=== PATIENT | female | born 1985 | race Caucasian/White ===

== ENCOUNTER 2022-01-30 20:20 | Emergency (ER) | payer BC, SELFPAY | END 2022-01-30 21:05 | disposition left against medical advice (07) | DX: Z53.21 Procedure and treatment not carried out due to patient leaving prior to being seen by health care provider (principal) | CPT/HCPCS: 99281 ==

== ENCOUNTER 2023-02-14 03:28 | Emergency (ER) | payer BC, SELFPAY ==
[2023-02-14 03:31] VITALS: BP 150/94; PULSE 70; RESP 18; TEMP 36.1; O2SAT 99; BMI 21.8
[2023-02-14 04:02] VITALS: BP 139/71; PULSE 68; RESP 18; O2SAT 98
--- NOTE | 2023-02-14 04:04 | ED.GENADULT ---
HPI - General Adult General Chief complaint: Arrhythmia/Palpitations Stated complaint: racing heartrate Time Seen by Provider: 02/14/23 03:40 Source: patient History of Present Illness HPI narrative: 37-year-old female presents to the emergency department for evaluation of feeling of racing heart, is currently present at the time of evaluation. This happens frequently, she reports a couple of times in the last week but typically a couple of times per month. She is on multiple medications including Suboxone, Wellbutrin, Adderall, Latuda and amitriptyline. Reports that she has recently transition from Concerta to Adderall and feels like her symptoms are happening more often. From her description, it sounds as though she has been evaluated in the emergency department for this before. She has been told to monitor her heart rate on her fitness watch. She has not noticed any true high heart rate. There has been no syncope, no chest pain, no dizziness or other related type symptoms. No neurological changes. She has had multiple labs performed within the last few months, reviewed from September. She has also had a thyroid level performed within the last few years, also reviewed. All of these were normal. She sees her monthly, it sounds as though she has brought up her symptoms and there were no additional concerns. She is scheduled to work in 8 hours and requests a work note. She states that other than the mental health issues, she has no long-term medical problems. Her home medications are reviewed and listed as accurate with the exception of amitriptyline and Adderall which were not included in her medicine list. ROS is otherwise negative times 12 systems except for the palpitations as described above. Related Data Home Medications Medication Instructions Recorded Confirmed buprenorphine 8 mg-naloxone 2 mg 10 mg sublingual BID 09/27/22 09/27/22 sublingual film bupropion HCl 100 mg tablet,12 hr 100 mg PO QAM 09/27/22 09/27/22 sustained-release bupropion HCl 300 mg 24 hr tablet, 300 mg PO QAM 09/27/22 09/27/22 extended release cholecalciferol (vitamin D3) 50 50 mcg PO DAILY 09/27/22 09/27/22 mcg (2,000 unit) capsule lurasidone 120 mg tablet 120 mg PO QPM 09/27/22 09/27/22 Allergies Allergy/AdvReac Type Severity Reaction Status Date / Time No Known Drug Allergies Allergy Verified 09/27/22 22:34 [facility] Social History Smoking Status: Current every day smoker Do you use any of these nicotine containing products: None Second hand tobacco smoke exposure: No How often do you have a drink containing alcohol: 2-4 times a month AUDIT-C Alcohol total score: 2 Non-prescribed substance use: denies use Exam Const: Vital Signs, click to edit/add: Vital Signs - 24 hr 02/14/23 03:31 02/14/23 04:02 Temperature 97 F L Pulse Rate [Pulse Oximeter] 70 68 Respiratory Rate 18 18 Blood Pressure [Le ft Upper Arm] 150/94 H 139/71 Pulse Oximetry 99 98 Oxygen Delivery Me thod Room Air Room Air Documenting provider has reviewed patient's vital signs: yes Common normals: no apparent distress General appearance: cooperative, comfortable and well kempt HENMT: Common normals: normocephalic Head and scalp: normocephalic Mouth: oral and palatal mucosa normal Eye: Common normals: conjunctivae normal General eye: normal appearance of both eyes Conjunctiva: conjunctiva(e) normal Resp: Common normals: normal respiratory effort, no use of accessory muscles and clear to auscultation bilaterally Effort & inspection: able to speak in complete sentences Auscultation: clear to auscultation bilaterally Cardio: Common normals: regular rate, regular rhythm, S1 normal heart sound, S2 normal heart sound and no murmurs Rate: regular rate Rhythm: regular rhythm Heart sounds: S1 normal and S2 normal Neuro: Speech: speech normal Motor exam: no tremor noted Psych: Appearance: well kempt Activity/motor behavior: appropriate eye contact Mood and affect: anxious Insight: insight good Judgement: judgment good Skin: Common normals: no rashes or lesions noted General skin exam: no rashes or lesions noted Course Course ED Course: EKG recommended an reviewed. Normal as expected. Heart rate observed on monitor for 30 minutes, no signs of arrhythmia or even PVCs. Reviewed patient's prior normal labs, do not recommend repeating these. She has also had appropriate thyroid testing, do not recommend repeating this. I suspect that her symptoms are side effects from her medications. The benefit versus the risk of the side effects is likely balanced. Counseled patient on monitoring her heart rate on her fitness watch and reviewed what levels would be acceptable. Discussed alarm symptoms that would warrant ED presentation. She verbalizes understanding and agreement. I am going to go ahead and discharge her right away, she will have 8 hours before her scheduled work shift. I do not think that she needs a work note because of this. She is fully cleared for all duty. Vital Signs Vital signs: Initial Vital Signs Temperature 97 F L 02/14/23 03:31 Temperature Source Temporal Artery Scan 02/14/23 03:31 Pulse Rate 70 02/14/23 03:31 Respiratory Rate 18 02/14/23 03:31 Blood Pressure 150/94 H 02/14/23 03:31 Blood Pressure Mean 112 H 02/14/23 03:31 Blood Pressure Position Supine 02/14/23 03:31 Pulse Oximetry 99 02/14/23 03:31 Oxygen Delivery Method Room Air 02/14/23 03:31 Vital Signs Temperature 97 F L 02/14/23 03:31 Pulse Rate 70 02/14/23 03:31 Respiratory Rate 18 02/14/23 03:31 Blood Pressure 150/94 H 02/14/23 03:31 Pulse Oximetry 99 02/14/23 03:31 Oxygen Delivery Method Room Air 02/14/23 03:31 Temperature 97 F L 02/14/23 03:31 Pulse Rate 68 02/14/23 04:02 Respiratory Rate 18 02/14/23 04:02 Blood Pressure 139/71 02/14/23 04:02 Pulse Oximetry 98 02/14/23 04:02 Oxygen Delivery Method Room Air 02/14/23 04:02 Medical Decision Making ECG Data Attestation: I personally reviewed and interpreted this ECG as follows: Interpretation: Normal sinus rhythm with a rate of 69. Normal axis. No significant ST or T-wave abnormalities. Unchanged from previous visit. Discharge Plan Discharge Clinical Impression: Palpitations Patient Disposition: Home, Self-Care Condition: Stable Instructions: Heart Palpitations (DC) Additional Instructions: As we discussed, there are no signs of any abnormalities with your heart. It is not unusual with the combination of medications that you take to have a feeling of racing heart. I would like for you to keep monitoring her heart rate with your watch and to keep a symptom diary for your psychiatrist. Please bring up your symptoms at your upcoming visit. If your symptoms are very bothersome, your psychiatrist may consider decreasing your Wellbutrin or Adderall. Often, reassurance that your heart is okay is often helpful. Your EKG and heart rate monitor looks great here. If you continue to have sustained heart rate at rest over 140 on your watch, you should have additional monitoring like a Holter monitor or echo which is an ultrasound of the heart performed. If your heart rate remains below that range and you do not have any exertional symptoms or daytime symptoms, I would not recommend further workup. You are absolutely cleared to return to work in 8 hours for your scheduled shift. Activity Level: No Restrictions Discharge Diet: Regular Prescriptions: No Action bupropion HCl 100 mg tablet sustained-release 12 hr 100 mg PO QAM bupropion HCl 300 mg tablet extended release 24 hr 300 mg PO QAM cholecalciferol (vitamin D3) 50 mcg (2,000 unit) capsule 50 mcg PO DAILY buprenorphine-naloxone 8-2 mg film 10 mg sublingual BID lurasidone 120 mg tablet 120 mg PO QPM Follow Up/Referrals: Provider,Not a Local [Primary Care Provider] - Stand Alone Forms: [facility] Info Instructions
== END 2023-02-14 04:06 | disposition home or self-care (01) ==
LOC: ED 04:02
PROVIDERS: Emergency Provider Family Medicine
DX: R00.2 Palpitations (principal)
CPT/HCPCS: 99283

== ENCOUNTER 2023-04-11 23:55 | Emergency (ER) | payer BC, SELFPAY ==
[2023-04-12 00:25] VITALS: BP 147/81; PULSE 92; RESP 16; TEMP 37; O2SAT 97; BMI 21.8
--- NOTE | 2023-04-12 01:12 | ED_ITS ---
HPI - General Adult General Chief complaint: Dizziness/Vertigo Stated complaint: started new meds, feels dizzy Time Seen by Provider: 04/12/23 00:58 History of Present Illness HPI narrative: approximately 1 month ago started Latuda 80mg then increased to 120mg 2 weeks ago then about 1hour ago started feeling out of this world, dizzy, and light sensitivity. Fianc? notes her starring off into space. 37-year-old woman presenting to the emergency department accompanied by spouse. Apparently abruptly finding herself staring upwards. Had a headache earlier in the day that had resolved. Was watching television with her fiance. He left the room and returned to find her just staring upward and off into space. Jorge wonders if the Latuda may have been related and that she took it about an hour prior to this event. Also daily dosing of Suboxone bupropion Adderall. De nies any other substances. Not dizzy just feels like has to look up and has a great deal difficulty closing her eyes. Would not be able to fall asleep. Photophobic. No fever. No rashes. No other sensory loss or dysfunction/week. No actual loss of vision. No reported history of seizures. Related Data Home Medications Medication Instructions Recorded Confirmed buprenorphine 8 mg-naloxone 2 mg 10 mg sublingual BID 09/27/22 04/12/23 sublingual film bupropion HCl 100 mg tablet,12 hr 100 mg PO QAM 09/27/22 04/12/23 sustained-release bupropion HCl 300 mg 24 hr tablet, 300 mg PO QAM 09/27/22 04/12/23 extended release cholecalciferol (vitamin D3) 50 50 mcg PO DAILY 09/27/22 04/12/23 mcg (2,000 unit) capsule lurasidone 120 mg tablet 120 mg PO QPM 09/27/22 04/12/23 dextroamphetamine-amphetamine 10 1 tab PO DAILY 04/12/23 04/12/23 mg tablet dextroamphetamine-amphetamine ER 1 cap PO DAILY 04/12/23 04/12/23 20 mg 24hr capsule,extend release polyethylene glycol 3350 17 g PO DAILY PRN constipation 04/12/23 gram/dose oral powder valacyclovir 500 mg tablet 500 mg PO DAILY 04/12/23 04/12/23 Allergies Allergy/AdvReac Type Severity Reaction Status Date / Time No Known Drug Allergies Allergy Verified 09/27/22 22:34 Review of Systems Status of ROS: Reports: 6 or more systems reviewed and unremarkable except as noted in History and below [facility] Social History Smoking Status: Current every day smoker Do you use any of these nicotine containing products: None Second hand tobacco smoke exposure: No How often do you have a drink containing alcohol: 2-4 times a month AUDIT-C Alcohol total score: 2 Non-prescribed substance use: denies use Exam Narrative: Exam Narrative: Seems generally uncomfortable. Demonstrating photophobia. She is able to blink her eyes but stares upward also lifting her head back somewhat. Pupils are 3-4 mm and equal and appropriately reactive and accommodating and extraocular movements are intact and full. She does though quickly revert to upward staring. Moving all extremities fluidly and without difficulty. No sensory deficits apparent. She is well-perfused peripherally. No rashes. Lungs appear to be clear. Heart in elevated rate but regular rhythm. Cranial nerves 2-12 are intact. Oropharynx is moist. Head is atraumatic. Neck is supple. No lymphadenopathy. Const: Vital Signs, click to edit/add: Vital Signs - 24 hr 04/12/23 00:25 Temperature 98.6 F Pulse Rate [Pulse Oximeter] 92 Respiratory Rate 16 Blood Pressure [Le ft Upper Arm] 147/81 H Pulse Oximetry 97 Oxygen Delivery Me thod Room Air Documenting provider has reviewed patient's vital signs: yes Course Vital Signs Vital signs: Initial Vital Signs Temperature 98.6 F 04/12/23 00:25 Temperature Source Temporal Artery Scan 04/12/23 00:25 Pulse Rate 92 04/12/23 00:25 Pulse Rhythm Regular 04/12/23 00:25 Respiratory Rate 16 04/12/23 00:25 Blood Pressure 147/81 H 04/12/23 00:25 Blood Pressure Mean 103 04/12/23 00:25 Blood Pressure Position Sitting 04/12/23 00:25 Pulse Oximetry 97 04/12/23 00:25 Oxygen Delivery Method Room Air 04/12/23 00:25 Vital Signs Temperature 98.6 F 04/12/23 00:25 Pulse Rate 92 04/12/23 00:25 Respiratory Rate 16 04/12/23 00:25 Blood Pressure 147/81 H 12/05/23 00:25 Pulse Oximetry 97 04/12/23 00:25 Oxygen Delivery Method Room Air 04/12/23 00:25 Temperature 98.6 F 04/12/23 00:25 Pulse Rate 92 04/12/23 00:25 Respiratory Rate 16 04/12/23 00:25 Blood Pressure 147/81 H 04/12/23 00:25 Pulse Oximetry 97 04/12/23 00:25 Oxygen Delivery Method Room Air 04/12/23 00:25 Medications Administered Medications: Discontinued Medications Generic Name Dose Route Start Last Admin Trade Name Tashi PRN Reason Stop Dose Admin Sodium Chloride 1,000 mls @ 1,000 mls/hr 04/12/23 02:15 04/12/23 02:15 0.9 % Sodium Chloride 1000 Ml IV 04/12/23 03:14 1,000 mls/hr .Q1H ONE Administration Lorazepam 1 mg 04/12/23 02:43 04/12/23 02:45 Lorazepam 2 Mg/Ml Inj IVP 04/12/23 02:44 1 mg ONCE ONE Administration Medical Decision Making MDM Narrative Medical decision making narrative: I would suspect some emotional response here or anxiety. Does not feel she is otherwise anxious. Exacerbated by atypical migraine? Does not appear to be postictal nor evidence of a seizure otherwise. Doubt cerebrovascular event but worth doing a screening CT I think more for bleed/aneurysmal leak. Quite possibly more of a dystonic reaction in light of medications. Latuda dosing has been recently increased. Unusual for infectious etiology without other symptoms. Vitamin deficiency? Would not suspect consistent with abrupt onset given lack of prior symptoms. Check labs for evidence of overdose or organ dysfunction due to medications. In the meantime suspecting more of a dystonic reaction would place IV and fluids and dose lorazepam. Noncontrast head CT reviewed by me looks to be unremarkable. Labs are overall reassuring. On reassessment Ms. Montoya is quite improved. More relaxed. No longer staring upward. still a little photophobic. I did discuss this case with Neurology on-call prior to resolution of case and they are in agreement with above care and assessment. See patient discharge plan Medical Records Medical records reviewed: Yes I reviewed the patient's medical records Lab Data Lab results reviewed: Yes I reviewed the patient's lab results Labs: Lab Results 04/12/23 Range/Units 02:38 WBC 7.76 (4.50-11.00) K/uL RBC 4.28 (4.00-5.20) m/uL Hgb 13.6 (12.0-16.0) gm/dL Hct 39.7 (33.0-51.0) % MCV 93 (80-100) fL MCH 32 (26-34) pg MCHC 34 (32-36) gm/dL RDW Coeff of Ramon 12.8 (11.5-15.5) % Plt Count 244 (140-440) K/uL Neut % (Auto) 74.5 H (42.0-72.0) % Lymph % (Auto) 16.9 L (20-44) % [place] % (Auto) 7.7 (0.0-11.0) % Eos % (Auto) 0.8 (0.0-7.0) % Baso % (Auto) 0.1 (0.0-3.0) % Neut # (Auto) 5.80 (1.7-7.0) K/uL Lymph # (Auto) 1.30 (0.90-2.90) K/uL [place] # (Auto) 0.60 (0.00-0.90) K/UL Eos # (Auto) 0.06 (0.00-0.50) K/uL Baso # (Auto) 0.01 (0.00-0.30) K/uL Abs Immat Gran (auto) 0.00 (0.00-0.30) K/uL Imm/Tot Granulo (auto) 0.0 % Sodium 139 (135-149) mmol/L Potassium 3.5 L (3.6-5.1) mmol/L Chloride 107 (96-114) mmol/L Carbon Dioxide 27 (20-32) mmol/L Anion Gap 5 L (7-15) mEq/L BUN 21 (5-24) mg/dL Creatinine 0.9 (0.5-1.5) mg/dL Estimated Creat Clear 78.56 Estimated GFR 83 ml/min Glucose 111 (60-115) mg/dL Calcium 9.2 (8.4-10.6) mg/dL Total Bilirubin 0.4 (0.1-1.5) mg/dL Direct Bilirubin 0.0 (0.0-0.5) mg/dL AST 24 (12-35) U/L ALT 18 (4-35) U/L Alkaline Phosphatase 84 (40-150) U/L C-Reactive Protein < 0.5 L (0.5-1.0) mg/dL Total Protein 7.5 (6.0-8.3) g/dL Albumin 4.3 (3.3-5.0) g/dL Ethyl Alcohol < 0.01 L (0.01-0.03) % Discharge Plan Discharge Clinical Impression: Dystonia Patient Disposition: Home w/ Parent or Adult Condition: Improved Additional Instructions: I also think that this may have been a dystonic reaction related to lurasidone; at least this would seem to be the most likey culprit of your medications . I suppose it could also be a strange presentation of anxiety. I'm glad you are feeling better now. I would discuss this event and medication dosing with your prescribing physician. Prescriptions: No Action bupropion HCl 100 mg tablet sustained-release 12 hr 100 mg PO QAM bupropion HCl 300 mg tablet extended release 24 hr 300 mg PO QAM cholecalciferol (vitamin D3) 50 mcg (2,000 unit) capsule 50 mcg PO DAILY buprenorphine-naloxone 8-2 mg film 10 mg sublingual BID lurasidone 120 mg tablet 120 mg PO QPM dextroamphetamine-amphetamine 10 mg tablet 1 tab PO DAILY valacyclovir 500 mg tablet 500 mg PO DAILY dextroamphetamine-amphetamine 20 mg capsule,extended release 24hr 1 cap PO DAILY polyethylene glycol 3350 17 gram/dose powder PO DAILY PRN (Reason: constipation) Follow Up/Referrals: Provider,Not a Local [Primary Care Provider] - Stand Alone Forms: [facility]
[2023-04-12] MEDS: 0.9 % SODIUM CHLORIDE 1000 ml 1,000 ML IV (02:15)
--- NOTE | 2023-04-12 02:15 | CRLHL7_ITS ---
For Patients: As a result of the Century Cures Act, medical imaging exams and procedure reports are released immediately into your electronic medical record. You may view this report before your referring provider. If you have questions, please contact your health care provider. INDICATION: Persistent vertical gaze. Altered mental status. TECHNIQUE: CT head without contrast. COMPARISON: None. FINDINGS: CSF spaces: Within normal limits for age. Brain parenchyma and extra-axial spaces: The harper-white differentiation is normal. No sign of mass, hemorrhage, or midline shift. No extra-axial fluid collection. Skull base and calvarium: The visualized paranasal sinuses and mastoid air cells demonstrate no acute or significant findings. The visualized orbits are grossly unremarkable. No skull fractures. IMPRESSION: Unremarkable noncontrast head CT. Please note that all CT scans at this facility use dose modulation, iterative reconstruction, and/or weight-based dosing when appropriate to reduce radiation dose to as low as reasonably achievable. Dictated by Redd France MD @ 04/12/2023 3:12:00 AM (Electronically Signed)
[2023-04-12 02:44] LABS: Basophils Absolute Auto 0.01 K/uL (0.00-0.30); Basophils Percent Auto 0.1 % (0.0-3.0); Eosinophils Absolute Auto 0.06 K/uL (0.00-0.50); Eosinophils Percent Auto 0.8 % (0.0-7.0); Hematocrit 39.7 % (33.0-51.0); Hemoglobin* 13.6 gm/dL (12.0-16.0); Lymphocytes Percent Auto 16.9 % (20-44); Mean Corpuscular HGB Conc 34 gm/dL (32-36); Mean Corpuscular Hemoglobin 32 pg (26-34); Mean Corpuscular Volume 93 fL (80-100); Monocytes Percent Auto 7.7 % (0.0-11.0); Neutrophils Percent Auto 74.5 % (42.0-72.0); Platelet Count* 244 K/uL (140-440); RDW Coefficient of Variation % 12.8 % (11.5-15.5); Red Blood Count 4.28 m/uL (4.00-5.20); White Blood Count* 7.76 K/uL (4.50-11.00)
[2023-04-12] MEDS: LORazepam 2 MG/ML inj 1 MG IVP (02:45)
[2023-04-12 02:46] LABS: Slide Review Reflex No
[2023-04-12 02:57] LABS: Albumin* 4.3 g/dL (3.3-5.0); Chloride* 107 mmol/L (96-114)
[2023-04-12 02:58] LABS: Potassium* 3.5 mmol/L (3.6-5.1); Sodium* 139 mmol/L (135-149)
[2023-04-12 03:00] LABS: Alkaline Phosphatase* 84 U/L (40-150); Anion Gap 5 mEq/L (7-15); Aspartate Amino Transferase* 24 U/L (12-35); Bilirubin Total* 0.4 mg/dL (0.1-1.5); Carbon Dioxide* 27 mmol/L (20-32); Creatinine* 0.9 mg/dL (0.5-1.5); Est. Creatinine Clearance* 78.56; Estimated Glomerular Filt Rate 83 ml/min; Total Protein* 7.5 g/dL (6.0-8.3)
[2023-04-12 03:01] LABS: Alanine Aminotransferase* 18 U/L (4-35); Blood Urea Nitrogen* 21 mg/dL (5-24); Calcium* 9.2 mg/dL (8.4-10.6); Glucose* 111 mg/dL (60-115)
[2023-04-12 03:04] LABS: C Reactive Protein* < 0.5 mg/dL (0.5-1.0); Ethanol* < 0.01 % (0.01-0.03)
== END 2023-04-12 03:51 | disposition home or self-care (01) ==
PROVIDERS: Emergency Provider Family Medicine
DX: G24.9 Dystonia, unspecified (principal)
CPT/HCPCS: 36415; 70450; 80048; 80076; 80306; 82077; 85025; 86140; 96374; 99283; 99284; J2060; J7030

== ENCOUNTER 2023-08-29 21:45 | Emergency (ER) | payer OTHER, SELFPAY ==
[2023-08-29 22:12] VITALS: BP 154/85; PULSE 86; RESP 16; TEMP 36.3; O2SAT 97; BMI 23.0
--- NOTE | 2023-08-29 23:36 | CT_ITS ---
Patient: CALEB RODRÍGUEZ Facility:?[facility] Patient ID:?[id number] Site Patient ID:?[id number]. Site :?[id number] Study:?CT-Head W/O-08/30/2023 12:08:08 AM Ordering Physician:NORBERTO Final Report: INDICATION: Hit back of head at work TECHNIQUE: CT Head without i.v. contrast. Coronal and sagittal reformats were obtained. COMPARISON: 04/12/2023 FINDINGS: CSF space: The ventricles are normal for age. Brain: No evidence of mass, acute infarction or hemorrhage is seen. No mass- effect or midline shift is seen. The brain parenchyma is otherwise normal in appearance with preservation of the harper-white matter junction. Calvarium: The visualized paranasal sinuses are well aerated. The mastoid air cells are clear. The visualized orbits are grossly unremarkable. The calvarium is unremarkable in appearance with no fractures identified. IMPRESSION: 1. No evidence of acute infarction, intracranial hemorrhage, or mass-effect seen. Please note that all CT scans at this facility use dose modulation, iterative reconstruction, and/or weight-based dosing when appropriate to reduce radiation dose to as low as reasonably achievable. Dictated by: Andreas Morocho MD @ 08/30/2023 00:37:24 Signed by:?Andreas Morocho MD @08/30/2023 12:37:24 AM (Electronic Signature)
--- OUTSIDE RECORDS SUMMARY | 2023-08-29 23:48 | XMS_ITS | Clinical Summary ---
Author Name Unknown Organization [employer] [facility] [employer] [facility] Address [place], [place] [address] Care Team Providers [facility] Lpn Name Role Phone Staci Villegas MD Primary Care Provider [phone] Allergies Active Allergy Reactions Criticality Noted Date Comments Doxapram Hives 01/13/2018 Doxepin Hives 10/07/2015 Ibuprofen Hives,Angioedema 01/13/2018 Pollen Extracts Dizziness 09/27/2015 Seasonal Allergies Medications Medication Sig Dispensed Refills Start Date End Date Status buPROPion (WELLBUTRIN XL) 150 mg Extended-Release tabletIndications:At tention deficit hyperactivity disorder (ADHD), combined type,Major depressive disorder, recurrent, moderate (HC) Take 1 tablet by mouth every morning. 30 tablet 1 02/08/2018 Active Vitamin D-3 10 mcg (400 unit) capsule 12/18/2020 Active buprenorphine-naloxo ne (SUBOXONE) 12-[address] 1 Film under the tongue once daily. Active buprenorphine-naloxo ne (SUBOXONE) 8-[address] 1 Film under the tongue once daily. 12/31/2020 Active cloNIDine HCL (CATAPRES) 0.2 mg tablet Take 0.2 mg by mouth once daily. Active dextroamphetamine-am phetamine (ADDERALL) 10 mg tablet Take 10 mg by mouth once daily. Active dextroamphetamine-am phetamine (ADDERALL XR) 20 mg Extended-Release capsule Take 20 mg by mouth once daily. Active LORazepam (ATIVAN) 1 mg tablet Take 1 mg by mouth at bedtime if needed. Active lurasidone 60 mg tab Take 60 mg by mouth with dinner. Active omeprazole (PRILOSEC) 20 mg Delayed-Release capsule Take 20 mg by mouth once daily before a meal. 11/18/2020 Active polyethylene glycoL (MIRALAX) 17 gram/scoop powder Mix 17 g in liquid then take by mouth once daily if needed. 07/20/2023 Active SUMAtriptan (IMITREX) 50 mg tablet As directed 50 mg. 12/19/2020 Active valACYclovir (VALTREX) 500 mg tablet Take 500 mg by mouth once daily. Active ketoconazole 2% shampoo (NIZORAL) 2 % shampooIndications:S eborrheic dermatitis of scalp Apply to wet scalp, lather, leave on 3 to 5 minutes, and rinse; apply twice weekly for 2 to 4 weeks. 120 mL 08/03/2023 Active mupirocin (BACTROBAN OINTMENT) ointmentIndications: Angular cheilitis Apply topically to affected area(s) two times daily. 15 g 08/03/2023 Active ondansetron (ZOFRAN ODT) 4 mg disintegrating tabletIndications:Na usea Place 1 Tablet (4 mg) on the tongue every 8 hours if needed for Nausea/Vomiting for up to 15 doses. 15 Tablet 10/02/2021 4 Discontinue d(*Patient states no longer taking) ondansetron (ZOFRAN) 4 mg tabletIndications:Na usea Take 1 Tablet (4 mg) by mouth every 8 hours if needed for Nausea/Vomiting . 21 Tablet 06/28/2022 4 Discontinue d(*Patient states no longer taking) Active Problems Problem Noted Date Diagnosed Date Attention deficit hyperactiv ity disorder (ADHD), combined type 02/08/2018 History of drug dependence/abuse 02/08/2018 Major depressive disorder, recurrent, moderate 1 Anxiety 02/08/2018 Encounters Date Type Department Care Team Description 08/03/2023 3:40 PM CDT Office Visit [facility] [address] [place] [address] Sharon Baird, Sores In Mouth (ongoing since april, painful and annoying, heals and comes back. ); Hair/Scalp Problem (scabs on scalp that cause patient to lose hair.) 08/03/2023 Travel from Last 3 Months Immunizations Name Administration Dates Next Due DTP 04/25/1987 Hepatitis B (Adult) 03/09/2021,12/16/2020 Hepatitis B (Peds) 12/08/1999,06/01/1999, 999 Influenza Virus, Unspecified 03/09/2021( Deferred: Patient Refused),02/05/2015,02/26/2014,02/27/20 13,03/06/2010 Influenza, IIV3 (Age >=3 years) 03/06/2010 Influenza, IIV4 (=>6mos) MDV 02/05/2015 Pneumococcal Poly,23-Valent (Pneumovax) 03/09/2021,03/09/2021(Deferred: Patient Refused) TD, UNSPECIFIED 03/10/1999 Td (Age >=7 Years) 06/23/2005 Td, Preservative Free (age > = 7 Years) 07/05/2005 Tdap 03/11/2015 Family History Medical History Relation Name Comments Hypertension Father Good Health Mother Relation Name Status Comments Father Alive Mother Alive Social History Tobacco Use Types Packs/Day Years Used Date Smoking Tobacco: Every Day Smokeless Tobacco: Never Tobacco Cessation:Ready to Q uit: Not Asked; Counseling Given: Not Answered Comments:5 cigarettes Alcohol Use Standard Drinks/Week Comments No 0 (1 standard drink = 0.6 oz pur e alcohol) PHQ-2 Answer Date Recorded PHQ-2 Score 4 07/10/2018 Social Connections Answer Date Recorded Frequency of Communication with Friends and Fami ly 0 08/03/2023 Financial Resource Strain Answer Date R ecorded Difficulty of Paying Living Expenses 3 08/03/2023 Difficulty of Paying Living Expenses Not on file 08/03/2023 Food Insecurity Answer Date Recorded Worried About Running Out of Food in the Last Ye ar 1 08/03/2023 Transportation Needs Answer Date Record ed Lack of Transportation (Medical) 1 08/03/2023 Housing Stability Answer Date Recorded Unable to Pay for Housing in the Last Year 1 08/03/2023 Sex and Gender Information Value Date Recorded Sex Assigned at Not on file Gender Identity Not on file Sexual Orientation Not on file Obstetrics History Last Filed Vital Signs Vital Sign Reading Time Taken Comments Blood Pressure 127/86 08/03/2023 3:54 PM CDT Pulse 90 08/03/2023 3:54 PM CDT Temperature 37.1 ??C (98.7 ??F) 01/04/2021 12:11 PM C DT Respiratory Rate 16 01/04/2021 12:11 PM CDT Oxygen Saturation 100% 08/03/2023 3:54 PM CDT Inhaled Oxygen Concentration - - Weight 63.5 kg (140 lb) 08/03/2023 3:54 PM CDT Height 165.1 cm (5' 5) 02/08/2020 8:03 AM CDT Body Mass Index 23.3 02/08/2020 8:03 AM CDT Plan of Treatment Health Maintenance Due Date Last Done Comments BMI (ht and wt on same day) for age 18+ 02/08/2019 02/08/2018 Depression screening for age 12+ 02/08/2019 02/09/20 18 Pneumococcal series for age 6-64 (2 of 2 - PCV) 03/09/2022 03/09/2021 COVID-19 vaccine series (2022- season) 2023 04/15/2021, 03/18/2021 Influenza for age 9-49 01/08/2024 5, 02/05/2015, 02/26/2014, Additional history exists Tetanus booster 03/11/2025 03/11/2015, 06/10, 06/23/2005, Additional history exists Tdap Completed 03/11/2015 HIV for age 15-65 Completed 01/14/2021 Hepatitis C screening for ag e 18-79 Completed 01/14/2021 Procedures Procedure Name Priority Date/Time Associated Diagnosis Comments ANTI HIV 1/2 Routine 01/14/2021 4:24 PM CDT Opioid dependence, uncomplicated (HC) ANTI HCV Routine 01/14/2021 4:24 PM CDT Opioid dependence, uncomplicated (HC) from Last 3 Months or Most Recently Relevant to Health Maintenance Results * ANTI HCV (01/14/2021 4:24 PM CDT) HEPATITIS C ANTIBODY Non-React grecia Non-React grecia 01/15/2021 4:23 PM CDT [facility] Comment:Antibodies to HCV no t detected; does not exclude the possibility of exposure to HCV. Blood BLOOD SPECIMEN / Unknown 01/14/2021 4:24 PM CDT 01/15/2021 9:37 AM CDT Staci Andrade RN, [employer] [facility] [address] [place] [address], * ANTI HIV 1/2 (01/14/2021 4:24 PM CDT) Pathologist [facility] HIV-1/HIV-2 ANTIBODY Non-Reacti ve Non-Reacti ve 01/15/2021 5:00 PM CDT [facility] Comment:HIV-1 p24 and HIV-1/ HIV-2 Ab not detected. Blood BLOOD SPECIMEN / Unknown 01/14/2021 4:24 PM CDT 01/15/2021 9:37 AM CDT Staci Andrade RN, [employer] [facility] [address] [place] [address], from Last 3 Months or Most Recently Relevant to Health Maintenance Care Teams Home Connect Lpn Relationship Specialty Start Date End Date Staci Villegas MD [address] [place] [id number] PCP - General 02/08/20
--- OUTSIDE RECORDS SUMMARY | 2023-08-29 23:49 | XMS_ITS | Continuity of Care Document ---
Author Name Unknown Address [address] [place] [id number] Phone [phone] Organization [place] [facility] Address [address] [place] [phone] Assessment No assessment recorded. 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 Referral None recorded. Procedures None recorded. Surgeries None recorded. Imaging None recorded. Medication Orders polyethyl chelly glycol 3350 17 gram/dose oral powder 2023 024 [id number], [address], [address], 07/20/2023 16:37:33 Suboxone 12 mg-3 mg sublingua l film 2023 024 [id number], [address], [address], 07/20/2023 16:37:16 Suboxone 8 mg-2 mg sublingua l film 2023 024 [id number], [address], [address], 07/20/2023 16:37:12 Patient TargetsNo targets recorded. Patient Instructions Encounter Date Encounter Id Patient Instructions Last Modified By Organization Details Last Modified Time 07/20/2023 [id number] At least 15 minutes spent with patient, reviewing chart and completing documentation. Not available 07/20/2023 16:40:11 Reason for Referral Behavioral Health Referral f or Stress and adjustment reaction Referring Physician: Staci Andrade, Family Medicine, Encounter Date: 06/16/2022 Problems Name Status Onset Date Resolution Date Notes Provider Name and Address Organization Details Recorded Time Seasonal allergic rhinitis Active Staci Andrade NP [address] [place], [address] , [facility] 2 16:21:42 Depressive disorder Active 021 [place] [address] [place] [address], [phone] , [facility] 2 20:11:06 Anxiety Active 021 Staci Andrade NP [address] [place], [address] , [facility] 2 20:11:01 History of intravenous drug abuse Active 021 Staci Andrade NP [address] [place], [address] , [facility] 2 16:22:03 Irritable bowel syndrome Active 021 Staci Andrade NP [address] [place], [address] , [facility] 2 16:22:06 Traumatic brain injury Active 021 Staci Andrade NP [address] [place], [address] , [facility] 2 16:21:57 Headache Active 021 Staci Andrade NP [address] [place], [address] , [facility] 2 16:22:10 Methamphetamine abuse Completed 07/15/2021 [place] [address] [place] [address], [phone] , [facility] 2 16:21:52 Opioid dependence Active 021 Staci Andrade, JASMINE [address] [place], [address] , [facility] 2 20:11:21 Genital herpes simplex Active 021 Staci Andrade NP [address] [place], [address] , [facility] 2 16:21:36 Therapeutic opioid induced constipation Active 022 Staci Andrade NP [address] [place], [address] , [facility] 2 20:11:14 Problem Notes None recorded. Procedures Surgical History Date Name Laterality Status Provider Name and Address Organization Details Recorded Time 3 [email or web address] 12/31/2020 15:10:06 Imaging Results None recorded. Procedure Notes None recorded. Medical Equipment None Reported. Allergies Allergen ID Allergen Name Allergen Category Reaction Reaction Severity Criticality Documentation Date Start Date Code Code System Note Provider Name and Address Organization Details Recorded Time 683 doxepin medicatio n hives Not available Not available 12/31/2020 3638 RxNorm Staci Andrade NP [address] [place], [address], [facility] 1 15:34:56 684 ibuprofen medicatio n angioedem a Not available Not available 12/31/2020 5640 RxNorm Staci Andrade NP [address] [place], [address], [facility] 1 15:35:06 Medications Name Sig Start Date Stop Date Status Note LastModified by Organization Details LastModified Time vitamin d3 50 mcg (2000 ut) caps 01/05 completed Not Available Not Available Not Available vitamin d3 25 mcg (1000 ut) tabs 01/13 completed Not Available Not Available Not Available clonidine HCl 0.1 mg tablet TAKE ONE TABLET BY MOUTH AT BEDTIME DIRECTED* 07/19 completed Not Available Not Available Not Available ketoconazol e 2 % shampoo Apply to wet scalp, lather, leave on 3 to 5 minutes, and rinse; apply twice weekly for 2 to 4 weeks.* active Not Available Not Available No t Available trazodone 50 mg tablet TAKE UP TO 3 TABLETS BY MOUTH AT BEDTIME 01/13 completed Not Available Not Available Not Available methylpheni date 10 mg tablet 08/12 completed Not Available Not Available Not Available methylpheni date 20 mg tablet take 1 tablet by mouth twice daily on an empty stomach; take mid-after noon and 4 hours later.* 02/02 completed Not Available Not Available Not Available ondansetron HCl 4 mg tablet 01/05 completed Not Available Not Available Not Available prednisone 20 mg tablet 10/07 completed Not Available Not Available Not Available dextroamphe tamine-amph etamine 10 mg tablet TAKE ONE TABLET BY MOUTH TWICE A DAY DIRECTED* active Not Available Not Available No t Available clonazepam 0.5 mg tablet TAKE 1 TABLET BY MOUTH TWICE DAILY NEEDED 12/31 completed Not Available Not Available Not Available sumatriptan 50 mg tablet 2020 active Not Available Not Available Not Avai lable methylpheni date ER 54 mg tablet,exte nded release 24 hr Take 1 tablet (54 mg) by mouth daily in the morning* 02/02 completed Not Available Not Available Not Available valacyclovi r 500 mg tablet TAKE ONE TABLET BY MOUTH ONE TIME DAILY* active Not Available Not Available No t Available triamcinolo ne acetonide 0.1 % topical cream 12/31 completed Not Available Not Available Not Available bupropion HCl SR 100 mg tablet,12 hr sustained-r elease TAKE ONE TABLET BY MOUTH ONE TIME DAILY* active Not Available Not Available No t Available clonidine HCl 0.2 mg tablet TAKE ONE TABLET BY MOUTH AT BEDTIME NEEDED* active Not Available Not Available No t Available dextroamphe tamine-amph etamine ER 20 mg 24hr capsule,ext end release TAKE ONE CAPSULE BY MOUTH EVERY DAY DIRECTED* active Not Available Not Available No t Available amitriptyli ne 10 mg tablet TAKE 1-3 TABLETS BY MOUTH ONCE DAILY AT BEDTIME.* 03/30 completed Not Available Not Available Not Available cephalexin 500 mg capsule 12/31 completed Not Available Not Available Not Available Concerta 36 mg tablet,exte nded release 01/13 completed Not Available Not Available Not Available omeprazole 20 mg capsule,del ayed release 07/14 completed Not Available Not Available Not Available mupirocin 2 % topical ointment Apply topically to affected area(s) two times daily.* active Not Available Not Available No t Available lorazepam 1 mg tablet TAKE ONE TABLET BY MOUTH DAILY NEEDED FOR SEVERE ANXIETY* active Not Available Not Available No t Available polyethylen e glycol 3350 17 gram/dose oral powder Mix 17 grams of powder with 4 to 8 ounces of liquid (water, juice, soda, coffee, or tea) until completel y dissolved , then drink once daily as needed for constipat ion* active Not Available Not Available No t Available propranolol 20 mg tablet TAKE ONE TABLET BY MOUTH ONE TIME DAILY* 05/25 completed Not Available Not Available Not Available ondansetron 4 mg disintegrat ing tablet 10/06 completed Not Available Not Available Not Available hydroxyzine pamoate 25 mg capsule TAKE ONE CAPSULE BY MOUTH DAILY NEEDED 07/14 completed Not Available Not Available Not Available azithromyci n 500 mg tablet 12/31 completed Not Available Not Available Not Available aripiprazol e 5 mg tablet 01/13 completed Not Available Not Available Not Available bupropion HCl XL 300 mg 24 hr tablet, extended release TAKE ONE TABLET BY MOUTH ONE TIME DAILY* active Not Available Not Available No t Available bupropion HCl XL 150 mg 24 hr tablet, extended release TAKE ONE TABLET BY MOUTH IN THE MORNING 06/17 completed Not Available Not Available Not Available Narcan 11/04 completed Not Available Not Available Not Available cholecalcif jay (vitamin D3) 50 mcg (2,000 unit) capsule TAKE ONE CAPSULE BY MOUTH ONE TIME DAILY 01/05 completed Not Available Not Available Not Available buprenorphi ne 8 mg-naloxone [address] ONE FILM SUBLINGUA LLY IN THE EVENING in addition to 12mg/3mg film in the morning* active Not Available Not Available No t Available Latuda 40 mg tablet 10/07 completed Not Available Not Available Not Available lurasidone 80 mg tablet TAKE ONE TABLET BY MOUTH ONE TIME DAILY AT BEDTIME WITH FOOD* 07/19 completed Not Available Not Available Not Available lurasidone 20 mg tablet TAKE ONE TABLET BY MOUTH ONE TIME DAILY AT BEDTIME WITH FOOD* 07/19 completed Not Available Not Available Not Available lurasidone 120 mg tablet Take 1 tablet by mouth every evening with meals* 05/25 completed Not Available Not Available Not Available buprenorphi ne 12 mg-naloxone [address] ONE FILM SUBLINGUA LLY IN THE MORNING in addition to 8mg/2mg film in the evening* active Not Available Not Available No t Available lurasidone 60 mg tablet TAKE ONE TABLET BY MOUTH ONE TIME DAILY AT BEDTIME WITH MEALS* active Not Available Not Available No t Available naloxone 4 mg/actuatio n nasal spray PLACE 1 SPRAY IN NOSTRIL NEEDED FOR SIGNS OF OPIATE OVERDOSE. MAY REPEAT WITH NEW SPRAY IN OTHER NOSTRIL AFTER 2-4 MINUTES. active Not Available Not Available No t Available Vitals None Recorded Social History Question Answer Notes LastModified by Organizat ion Details LastModified Time Tobacco Smoking Status Current Every Day Smoker Quit two weeks ago 01/13/22 Montrell manning [facility] [email or web address] 01/13/2022 16:36:48 How Much Tobacco Do You Smoke? 1 PPD Information not available 12/31/2020 Sex: Female Functional Status None recorded. Mental Status None recorded. Family History Relationship Description Onset Age of this Age Resolved Age Notes Maternal Grandfather Myocardial infarction Maternal Grandfather Family history of stroke Maternal Grandfather Essential hypertension Maternal Grandfather Diabetes mellitus Mother Hypercholesterolemia Mother Essential hypertension Mother Diabetes mellitus Mother Kidney disease Mother Substance abuse Mother History of depression Father Essential hypertension Maternal Grandmother Essential hypertension Maternal Grandmother Arthritis Medical History Condition Response Allergies (Food, seasonal, environmental ) Y Anxiety Disorder Y Head Trauma/Injury Y Substance Abuse Y Trauma/Violence Y Headaches Y Depression Y Gynecological HistoryNo gynecological history recorded. Obstetrics History GPAL:G 2 P 0 0 0 2 Type Value Living 2 Total 2 Immunizations Vaccine Type Date Status Provider Name and Address Organization Details Recorded Time Td (adult), 5 Lf tetanus toxoid, preservative free, adsorbed 07/05/2005 completed Staci Andrade, SILK SPREADER [address] [place], [address], [facility] 03/10/2022 19:19:58 influenza, injectable, quadrivalent 02/05/2015 completed Staci Andrade, JASMINE [address] [place] [address], [phone], [facility] 03/10/2022 19:19:58 influenza, unspecified formulation 02/26/2014 completed Staci Andrade, JASMINE [address] [place], [address], [facility] 03/10/2022 19:19:58 COVID-19, mRNA, LNP-S, PF, 30 mcg/0.3 mL dose 04/15/2021 completed Staci Andrade, JASMINE [address] [place] [address], [phone], [facility] 03/10/2022 19:19:58 Hep B, adult 03/09/2021 completed Staci Andrade, JASMINE [address] [place] [address], [phone], [facility] 03/10/2022 19:19:58 pneumococcal polysaccharide PPV23 03/09/2021 completed Staci Andrade, JASMINE [address] [place] [address], [phone], [email or web address] 03/10/2022 19:19:58 Hep B, adult 12/16/2020 completed Staci Andrade, JASMINE [address] [place] [address], [phone], [facility] 03/10/2022 19:19:58 Influenza, seasonal, injectable 03/06/2010 completed Staci Andrade, JASMINE [address] [place] [address], [phone], [email or web address] 03/10/2022 19:19:58 Tdap 03/11/2015 completed Staci Andrade, JASMINE [address] [place] [address], [phone], [facility] 03/10/2022 19:19:58 COVID-19, mRNA, LNP-S, PF, 30 mcg/0.3 mL dose 03/18/2021 completed ERIC CRUZ [address] [place] [address], [phone], [facility] 03/18/2021 15:32:07 Past Encounters Encounter ID Performer Location Encounter Start Date Encounter Closed Date Diagnosis/Indication Diagnosis SNOMED-CT Code [id number] Staci Andrade NP [facility] [address] [facility] [place] [address] 07/20/2023 16:18:24 07/20/2023 17:19:34 Opioid dependence, on agonist therapy [id number] Therapeuti c opioid induced constipation [id number] 2 Health Concerns Section Related Observation LastModified by Organization Detai ls LastModified Time None Recorded Concern Status LastModified by Organization Details LastModified Time None Recorded Payers None recorded. 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 Today's visit done virtually. Things are very good. Had a rough period at work but things have improved. Court Date: Now on probation; this will be up to 2 years (hopefully off 1 year). No new CD assessment is needed (Kiran Leach attested to Gabbi's participation in alumni group). Family court has been pushed back again. Mediation is now the next step. Cravings are well managed on current dosing. No cravings, no near misses or use. No other changes in health, mood. Medications reconciled; continues regular care with [facility]. Has been given a very small supply of Lorazepam (1mg; #3 tabs/month) for severe anxiety episodes which are characterized by tachycardia and upward eye movement. I cautioned on combined usage. Things continue to go well on the higher dose of Suboxone (12mg/3mg in morning, 8mg/2mg in evening): helping with cravings and anxiety. She would like to remain on this dose. Constipation management with Miralax. Staci Andrade NP [address] [facility] [place], [address], [facility] 07/20/2023 17:14:50 OBGyn Episode No OBEpisode recorded.
--- OUTSIDE RECORDS SUMMARY | 2023-08-29 23:49 | XMS_ITS | Data Portability ---
Author Name Unknown Address [address] [place] [id number] Phone [phone] Organization [place] - [facility] Address [address] [place] [phone] Assessment Encounter Date Assessment Date Assessment LastModified by Organization Details LastModified Time 01/28/2021 01/28/2021 Requests I sign paperwork requesting that her funding for housing be renewed for another 3 months. I believe this is appropriate. Fax # given. 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 Not available Not available Not available Lab drug of abuse panel, urine 2022 023 [facility], [address] [place] [address], [phone], 01/25/2023 11:00:15 drug of abuse panel, urine 2022 023 [facility], [address] [place] [address], [phone], 06/18/2022 16:55:40 drug screen, urine 2021 022 [email or web address] [facility], [address] [place] [address], [phone], 04/14/2022 11:20:34 drug screen, urine 2021 022 [facility], [address] [place] [address], [phone], 01/13/2022 20:36:09 HIV (1+2) Ab screen, serum 2020 021 MIGUEL Not available 01/15/2021 19:18:34 hepatitis C Ab, serum 2020 021 MIGUEL Not available 01/16/2021 11:07:11 RPR (rapid plasma reagin), serum 2020 021 MIGUEL Not available 01/16/2021 11:47:37 CT + NG DNA, PCR, urine 2020 MIGUEL Not available 01/16/2021 01:04:33 hepatic function panel, serum 2020 021 MIGUEL Not available 01/15/2021 12:57:33 Referral [facility] referral 2022 023 [email or web address] Not available 06/16/2022 17:51:30 Procedures None recorded. Surgeries None recorded. Imaging None recorded. Medication Orders polyethyl chelly glycol 3350 17 gram/dose oral powder 2023 024 [id number], [address], [address], 07/20/2023 16:37:33 Suboxone 12 mg-3 mg sublingua l film 2023 024 [id number], [address], [address], 07/20/2023 16:37:16 Suboxone 8 mg-2 mg sublingua l film 2023 024 [id number], [address], [address], 07/20/2023 16:37:12 polyethyl chelly glycol 3350 17 gram/dose oral powder 2023 024 [id number], [address], [address], 05/25/2023 16:45:05 Suboxone 8 mg-2 mg sublingua l film 2023 024 [id number], [address], [address], 05/25/2023 16:45:12 Suboxone 12 mg-3 mg sublingua l film 2023 024 [id number], [address], [address], 05/25/2023 16:45:11 Suboxone 8 mg-2 mg sublingua l film 2022 023 [id number], [address], [address], 03/30/2023 16:43:16 Suboxone 12 mg-3 mg sublingua l film 2022 023 [id number], [address], [address], 03/30/2023 16:43:16 Suboxone 12 mg-3 mg sublingua l film 2022 023 [id number], [address], [address], 02/02/2023 16:21:50 buprenorp josé antonio 8 mg-naloxo ne 2 mg sublingua l film 2022 023 [id number], [address], [address], 02/02/2023 16:21:50 valacyclo vir 500 mg tablet 2022 023 [id number], [address], [address], 01/05/2023 14:50:14 Suboxone 8 mg-2 mg sublingua l film [address], [address], 01/05/2023 15:13:12 Suboxone 12 mg-3 mg sublingua l film [address], [address], 01/06/2023 10:54:06 buprenorp josé antonio 8 mg-naloxo ne 2 mg sublingua l film [address], [address], 11/04/2022 14:46:58 polyethyl chelly glycol 3350 17 gram/dose oral powder [address], [address], 11/04/2022 14:46:39 buprenorp josé antonio 8 mg-naloxo ne 2 mg sublingua l film 2022 023 [id number], [address], [address], 10/06/2022 16:17:25 buprenorp josé antonio 8 mg-naloxo ne 2 mg sublingua l film [address], [address], 09/08/2022 16:00:44 valacyclo vir 500 mg tablet [address], [address], 08/13/2022 12:22:41 buprenorp josé antonio 8 mg-naloxo ne 2 mg sublingua l film [address], [address], 08/13/2022 12:22:28 buprenorp josé antonio 8 mg-naloxo ne 2 mg sublingua l film [address], [address], 07/14/2022 15:44:12 buprenorp josé antonio 8 mg-naloxo ne 2 mg sublingua l film [address], [address], 06/16/2022 15:51:14 buprenorp josé antonio 8 mg-naloxo ne 2 mg sublingua l film [address], [address], 05/12/2022 15:43:11 valacyclo vir 500 mg tablet [address], [address], 04/14/2022 12:14:47 buprenorp josé antonio 8 mg-naloxo ne 2 mg sublingua l film [address], [address], 04/14/2022 10:33:26 buprenorp josé antonio 8 mg-naloxo ne 2 mg sublingua l film [address], [address], 03/11/2022 11:09:03 buprenorp josé antonio 8 mg-naloxo ne 2 mg sublingua l film [address], [address], 02/10/2022 17:56:08 valacyclo vir 500 mg tablet [email or web address], [address], 04/14/2022 10:16:26 buprenorp josé antonio 8 mg-naloxo ne 2 mg sublingua l film [address], [address], 01/13/2022 18:12:50 polyethyl chelly glycol 3350 17 gram/dose oral powder [address], [address], 01/13/2022 18:13:01 buprenorp josé antonio 8 mg-naloxo ne 2 mg sublingua l film [address], [address], 12/16/2021 17:25:32 Miralax 17 gram/dose oral powder [address], [address], 11/04/2021 16:25:20 buprenorp josé antonio 8 mg-naloxo ne 2 mg sublingua l film [address], [address], 11/04/2021 16:26:15 Narcan 4 mg/actuat ion nasal spray [address], [address], 11/04/2021 16:26:07 buprenorp josé antonio 8 mg-naloxo ne 2 mg sublingua l film [address], [address], 10/07/2021 15:27:21 buprenorp josé antonio 8 mg-naloxo ne 2 mg sublingua l film [address], [address], 09/09/2021 15:59:55 buprenorp josé antonio 8 mg-naloxo ne 2 mg sublingua l film [address], [address], 08/12/2021 16:52:03 buprenorp josé antonio 8 mg-naloxo ne 2 mg sublingua l film [address], [address], 07/15/2021 16:21:35 buprenorp josé antonio 8 mg-naloxo ne 2 mg sublingua l film [address], [address], 06/17/2021 16:18:34 Miralax 17 gram/dose oral powder [address], [address], 05/13/2021 11:39:28 buprenorp josé antonio 8 mg-naloxo ne 2 mg sublingua l film 2021 022 [facility], [address] [place], [address], 05/13/2021 16:25:05 buprenorp josé antonio 8 mg-naloxo ne 2 mg sublingua l film 2020 021 [facility], [address] [place], [address], 04/15/2021 16:07:13 buprenorp josé antonio 8 mg-naloxo ne 2 mg sublingua l film 2020 [id number], [address] [place] [address], [id number], 03/18/2021 15:46:06 buprenorp josé antonio 8 mg-naloxo ne 2 mg sublingua l film 2020 021 [facility], [address] [place] [address], [address], 02/18/2021 17:35:47 buprenorp josé antonio 8 mg-naloxo ne 2 mg sublingua l film 2020 021 [facility], [address] [place] [address], [address], 01/28/2021 16:44:38 buprenorp josé antonio 8 mg-naloxo ne 2 mg sublingua l film 2020 021 [facility], [address] [place] [address], [address], 01/14/2021 17:27:06 Suboxone 12 mg-3 mg sublingua l film 2020 021 [email or web address] [facility], [address] [place], [address], 01/02/2021 12:33:08 Suboxone 8 mg-2 mg sublingua l film 2020 021 [email or web address] [facility], [address] [place] [address], [address], 12/31/2020 21:46:47 Patient TargetsNo targets recorded. Patient Instructions Encounter Date Encounter Id Patient Instructions Last Modified By Organization Details Last Modified Time 07/20/2023 [id number] At least 15 minutes spent with patient, reviewing chart and completing documentation. Not available 07/20/2023 16:40:11 03/18/[id number] 06/16/22 Addendum: Patient has copies of her UDS results. Today's UDS was reported as + for cannabinoids. However, patient denies any CBD or THC usage around this time. As a note, our UDS are considered screening tests only and should not be relied on for legal purposes. Any true positive would only be revealed by confirmatory lab analysis. [email or web address] Not available 06/16/2022 15:39:50 03/18/[id number] May take Tylenol prn. Use ice to arm prn. RTC 3 weeks for second dose. [email or web address] Not available 03/18/2021 15:49:21 Reason for Referral Behavioral Health Referral f or Stress and adjustment reaction Referring Physician: Staci Andrade, Family Medicine, Encounter Date: 06/16/2022 Results Created Date Observation Date Name Description Value Unit Range Abnormal Flag LastModifiedBy Organization Detail LastModifiedTime 01/15/20 21 01/14/2021 hepat ic funct ion panel , serum ALT 13 Not Available [facility] [address] [place], [address], 01/15/2021 12:31:39 01/15/20 21 01/14/2021 hepat ic funct ion panel , serum AST 20 Not Available [facility] ([facility] [address] [place], [address], 01/15/2021 12:31:39 01/15/20 21 01/14/2021 pregn demond test, urine HCG negati ve Not Available [facility] [address] [place] [address] [place], [address], 01/14/2021 17:10:58 01/15/20 21 01/14/2021 drug scree n, urine Amphetamines : negati ve Not Available [facility] [address] [place] [address] [place], [address], 01/14/2021 17:10:56 01/15/20 21 01/14/2021 drug scree n, urine Cannabinoids : negati ve Not Available [facility] [address] [place] [address] [place], [address], 01/14/2021 17:10:56 01/15/20 21 01/14/2021 drug scree n, urine Cocaine: negati ve Not Available [facility] [address] [place] [address] [place], [address], 01/14/2021 17:10:56 01/15/20 21 01/14/2021 drug scree n, urine Opiates: negati ve Not Available [facility] [address] [place] [address] [place], [address], 01/14/2021 17:10:56 01/15/20 21 01/14/2021 drug scree n, urine Phenocyclidi ne: negati ve Not Available [facility] [address] [place] [address] [place], [address], 01/14/2021 17:10:56 01/15/20 21 01/14/2021 drug scree n, urine Barbiturates : negati ve Not Available [facility] [address] [place] [address] [place], [address], 01/14/2021 17:10:56 01/15/20 21 01/14/2021 drug scree n, urine Benzodiazepi marlo: negati ve Not Available [facility] [address] [place] [address] [place], [address], 01/14/2021 17:10:56 01/15/20 21 01/14/2021 drug scree n, urine Hallucinogen s: negati ve Not Available [facility] [address] [place] [address] [place], [address], 01/14/2021 17:10:56 01/15/20 21 01/14/2021 drug scree n, urine TCA negati ve Not Available [facility] [address] [place] [address] [place], [address], 01/14/2021 17:10:56 01/15/20 21 01/14/2021 drug scree n, urine Buprenorphin e positi ve Not Available [facility] [address] [place] [address] [place], [address], 01/14/2021 17:10:56 02/19/20 21 02/18/2021 drug scree n, urine Amphetamines : negati ve Not Available [facility] [address] [place] [address] [place], [address], 02/18/2021 17:30:17 02/19/20 21 02/18/2021 drug scree n, urine Cannabinoids : negati ve Not Available [facility] [address] [place] [address] [place], [address], 02/18/2021 17:30:17 02/19/20 21 02/18/2021 drug scree n, urine Cocaine: negati ve Not Available [facility] [address] [place] [address] [place], [address], 02/18/2021 17:30:17 02/19/20 21 02/18/2021 drug scree n, urine Opiates: negati ve Not Available [facility] [address] [place], [address], 02/18/2021 17:30:17 02/19/2002/18/2021 drug scree n, urine Phenocyclidi ne: negati ve Not Available [facility] [address] [place] [address] [place], [address], 02/18/2021 17:30:17 02/19/2002/18/2021 drug scree n, urine Barbiturates : negati ve Not Available [facility] [address] [place] [address] [place], [address], 02/18/2021 17:30:17 02/19/2002/18/2021 drug scree n, urine Benzodiazepi marlo: negati ve Not Available [facility] [address] [place] [address] Natanael PatriciaibaJR harden, [address], 02/18/2021 17:30:17 02/19/2002/18/2021 drug scree n, urine Hallucinogen s: negati ve Not Available [facility] [address] [place] [address] [place], [address], 02/18/2021 17:30:17 02/19/2002/18/2021 drug scree n, urine TCA negati ve Not Available [facility] [address] [place] [address] [place], [address], 02/18/2021 17:30:17 02/19/2002/18/2021 drug scree n, urine Buprenorphin e positi ve Not Available [facility] [address] [place] [address] [place], [address], 02/18/2021 17:30:17 03/18/20 21 03/18/2021 drug scree n, urine Amphetamines : negati ve Not Available [facility] [address] [place] [address] Natanael PatriciaJR merchant, [address], 03/18/2021 15:24:11 03/18/20 21 03/18/2021 drug scree n, urine Cannabinoids : positi ve Not Available [facility] [address] [place] [address] [place], [address], 03/18/2021 15:24:11 03/18/20 21 03/18/2021 drug scree n, urine Cocaine: negati ve Not Available [facility] [address] [place] [address] [place], [address], 03/18/2021 15:24:11 03/18/20 21 03/18/2021 drug scree n, urine Opiates: negati ve Not Available [facility] [address] [place] [address] [place], [address], 03/18/2021 15:24:11 03/18/20 21 03/18/2021 drug scree n, urine Phenocyclidi ne: negati ve Not Available [facility] [address] [place] [address] [place], [address], 03/18/2021 15:24:11 03/18/20 21 03/18/2021 drug scree n, urine Barbiturates : negati ve Not Available [facility] [address] [place] [address] [place], [address], 03/18/2021 15:24:11 03/18/20 21 03/18/2021 drug scree n, urine Benzodiazepi marlo: negati ve Not Available [facility] [address] [place] [address] [place], [address], 03/18/2021 15:24:11 03/18/20 21 03/18/2021 drug scree n, urine Hallucinogen s: negati ve Not Available [facility] [address] [place] [address] [place], [address], 03/18/2021 15:24:11 03/18/20 21 03/18/2021 drug scree n, urine TCA negati ve Not Available [facility] [address] [place] [address] [place], [address], 03/18/2021 15:24:11 03/18/20 21 03/18/2021 drug scree n, urine Buprenorphin e positi ve Not Available [facility] [address] [place] [address] [place], [address], 03/18/2021 15:24:11 04/15/20 21 04/15/2021 drug scree n, urine Amphetamines : negati ve Not Available [facility] [address] [place] [address] [place], [address], 04/15/2021 14:53:17 04/15/20 21 04/15/2021 drug scree n, urine Cannabinoids : negati ve Not Available [facility] [address] [place] [address] [place], [address], 04/15/2021 14:53:17 04/15/20 21 04/15/2021 drug scree n, urine Cocaine: negati ve Not Available [facility] [address] [place] [address] [place], [address], 04/15/2021 14:53:17 04/15/20 21 04/15/2021 drug scree n, urine Opiates: negati ve Not Available [facility] [address] [place] [address] [place], [address], 04/15/2021 14:53:17 04/15/20 21 04/15/2021 drug scree n, urine Phenocyclidi ne: negati ve Not Available [facility] [address] [place] [address] [place], [address], 04/15/2021 14:53:17 04/15/20 21 04/15/2021 drug scree n, urine Barbiturates : negati ve Not Available [facility] [address] [place] [address] [place], [address], 04/15/2021 14:53:17 04/15/20 21 04/15/2021 drug scree n, urine Benzodiazepi marlo: negati ve Not Available [facility] [address] [place] [address] Natanael PatriciaibaJR hard[place], [address], 04/15/2021 14:53:17 04/15/20 21 04/15/2021 drug scree n, urine Hallucinogen s: negati ve Not Available [facility] [address] [place] [address] [place], [address], 04/15/2021 14:53:17 04/15/20 21 04/15/2021 drug scree n, urine TCA negati ve Not Available [facility] [address] [place] [address] Natanael PatriciaJR merchant, [address], 04/15/2021 14:53:17 04/15/20 21 04/15/2021 drug scree n, urine Buprenorphin e positi ve Not Available [facility] [address] [place] [address] Natanael PatriciaJR merchant, [address], 04/15/2021 14:53:17 01/14/20 22 01/13/2022 drug scree n, urine Amphetamines : negati ve Not Available [facility] [address] [place] [address] [place], [address], 01/13/2022 17:06:10 01/14/20 22 01/13/2022 drug scree n, urine Cannabinoids : negati ve Not Available [facility] [address] [place] [address] Natanael PatriciaJR merchant, [address], 01/13/2022 17:06:10 01/14/20 22 01/13/2022 drug scree n, urine Cocaine: negati ve Not Available [facility] [address] [place] [address] [place], [address], 01/13/2022 17:06:10 01/14/20 22 01/13/2022 drug scree n, urine Opiates: negati ve Not Available [facility] [address] [place] [address] [place], [address], 01/13/2022 17:06:10 01/14/20 22 01/13/2022 drug scree n, urine Phenocyclidi ne: negati ve Not Available [facility] [address] [place] [address] [place], [address], 01/13/2022 17:06:10 01/14/20 22 01/13/2022 drug scree n, urine Barbiturates : negati ve Not Available [facility] [address] [place] [address] [place], [address], 01/13/2022 17:06:10 01/14/20 22 01/13/2022 drug scree n, urine Benzodiazepi marlo: negati ve Not Available [facility] [address] [place] [address] [place], [address], 01/13/2022 17:06:10 01/14/20 22 01/13/2022 drug scree n, urine Buprenorphin e positi ve Not Available [facility] [address] [place] [address] [place], [address], 01/13/2022 17:06:10 04/14/20 22 04/14/2022 drug scree n, urine Amphetamines : negati ve Not Available [facility] [address] [place] [address] [place], [address], 04/14/2022 11:19:33 04/14/20 22 04/14/2022 drug scree n, urine Cannabinoids : negati ve Not Available [facility] [address] [place] [address] [place], [address], 04/14/2022 11:19:33 04/14/20 22 04/14/2022 drug scree n, urine Cocaine: negati ve Not Available [facility] [address] [place] [address] [place], [address], 04/14/2022 11:19:33 04/14/20 22 04/14/2022 drug scree n, urine Opiates: negati ve Not Available [facility] [address] [place] [address] [place], [address], 04/14/2022 11:19:33 04/14/20 22 04/14/2022 drug scree n, urine Phenocyclidi ne: negati ve Not Available [facility] [address] [place] [address] [place], [address], 04/14/2022 11:19:33 04/14/20 22 04/14/2022 drug scree n, urine Barbiturates : negati ve Not Available [facility] [address] [place] [address] [place], [address], 04/14/2022 11:19:33 04/14/20 22 04/14/2022 drug scree n, urine Benzodiazepi marlo: negati ve Not Available [facility] [address] [place] [address] [place], [address], 04/14/2022 11:19:33 04/14/20 22 04/14/2022 drug scree n, urine Hallucinogen s: negati ve Not Available [facility] [address] [place] [address] [place], [address], 04/14/2022 11:19:33 04/14/20 22 04/14/2022 drug scree n, urine TCA negati ve Not Available [facility] [address] [place] [address] [place], [address], 04/14/2022 11:19:33 04/14/20 22 04/14/2022 drug scree n, urine Buprenorphin e positi ve Not Available [facility] [address] [place], [address], 04/14/2022 11:19:33 04/14/20 22 04/14/2022 drug scree n, urine Other: negati ve Not Available [facility] [address] [facility] [place], [address], 04/14/2022 11:19:33 Result Notes None recorded. Problems Name Status Onset Date Resolution Date Notes Provider Name and Address Organization Details Recorded Time Seasonal allergic rhinitis Active 021 Staci Andrade NP [address] [place], [address] , [facility] [employer] 2 16:21:42 Depressive disorder Active 021 Staci Andrade NP [address] [place], [address] , [facility] [employer] 2 20:11:06 Anxiety Active 021 [place] [address] [place] [address] [place], [address] , [facility] [employer] 2 20:11:01 History of intravenous drug abuse Active 021 Staci Andrade NP [address] [place], [address] , [facility] [employer] 2 16:22:03 Irritable bowel syndrome Active 021 Staci Andrade NP [address] [facility] [place], [address] , [facility] [employer] 2 16:22:06 Traumatic brain injury Active 021 [place] [address] [place] [address] [place], [address] , [facility] [employer] 2 16:21:57 Headache Active 021 [place] [address] [place] [address] [place], [address] , [facility] 2 16:22:10 Methamphetamine abuse Completed 021 07/15/2021 Staci Andrade NP [address] [place], [address] , [facility] 2 16:21:52 Opioid dependence Active 021 [place] [address] [place] [address], [address] , [facility] 2 20:11:21 Genital herpes simplex Active 021 [place] [address] [place] [address], [address] , [facility] 2 16:21:36 Therapeutic opioid induced constipation Active 022 [place] [address] [place] [address], [address] , [facility] 2 20:11:14 Problem Notes None recorded. Procedures Surgical History Date Name Laterality Status Provider Name and Address Organization Details Recorded Time 3 [facility] 15[facility]10:06 Imaging Results None recorded. Procedure Notes None recorded. Medical Equipment None Reported. Allergies Allergen ID Allergen Name Allergen Category Reaction Reaction Severity Criticality Documentation Date Start Date Code Code System Note Provider Name and Address Organization Details Recorded Time 683 doxepin medicatio n hives Not available Not available 12/31/2020 3638 RxNorm Staci Andrade, JASMINE [address] [place], [address], [facility] 1 15:34:56 684 ibuprofen medicatio n angioedem a Not available Not available 12/31/2020 5640 RxNorm Staci Andrade, JASMINE [address] [place], [address], [facility] 1 15:35:06 Medications Name Sig Start Date Stop Date Status Note LastModified by Organization Details LastModified Time vitamin d3 50 mcg (1999) caps 01/05 completed Not Available Not Available [...] Available Not Available No t Available Vitals Date Recorded Body height Body mass index (BMI) Body weight Heart rate Systolic blood pressure Diastolic blood pressure Provider Name and Address Organization Details Last Updated DateTime 1 165.1 cm 22.1 kg/m2 89678.7 9 g 85 /min 115 mm[Hg] 72 mm[Hg] Staci Andrade NP [address] [place], [address]RAY [facility] [address] 1 15:39:20 Date Recorded Body height Heart rate Body mass index (BMI) Body weight Systolic blood pressure Diastolic blood pressure Provider Name and Address Organization Details Last Updated DateTime 2 165.1 cm 82 /min 22.6 kg/m2 34482.5 6 g 122 mm[Hg] 79 mm[Hg] Staci Andrade, JSAMINE [address] [place], [address], [facility] [address] 2 15:16:58 Date Recorded Body height Heart rate Body mass index (BMI) Body weight Systolic blood pressure Diastolic blood pressure Provider Name and Address Organization Details Last Updated DateTime 2 165.1 cm 82 /min 22.3 kg/m2 79741.3 8 g 127 mm[Hg] 85 mm[Hg] Montrell manning [facility] 2 16:39:19 Date Recorded Body weight Respiratory rate Body temperature Oxygen saturation Oxygen saturation in Arterial blood by Pulse oximetry Heart rate Systolic blood pressure Diastolic blood pressure Provider Name and Address Organization Details Last Updated DateTime 4 58234.7 8 g 22 /min 97.4 [degF] 99 % 99 % 88 /min 144 mm[Hg] 71 mm[Hg] Madeline Johnson nigel [facility] 4 16:34:09 Social History Question Answer Notes LastModified by Organizat ion Details LastModified Time Tobacco Smoking Status Current Every Day Smoker Quit two weeks ago 01/13/22 Montrell manning [facility] 01/13/2022 16:36:48 How Much Tobacco Do You [...] Maternal Grandmother Arthritis Medical History Condition Response Head Trauma/Injury Y Anxiety Disorder Y Allergies (Food, seasonal, environmental ) Y Substance Abuse Y Trauma/Violence Y Headaches Y Depression Y Gynecological HistoryNo gynecological history recorded. Obstetrics History GPAL:G 2 P 0 0 0 2 Type Value Living 2 Total 2 Immunizations Vaccine Type Date Status Provider Name and Address Organization Details Recorded Time Td (adult), 5 Lf tetanus toxoid, preservative free, adsorbed 07/05/2005 completed Staci Andrade NP [address] [place], [address], [facility] 03/10/2022 19:19:58 influenza, injectable, quadrivalent 02/05/2015 completed Staci Andrade NP [address] [facility] [place], [address], [facility] 03/10/2022 19:19:58 influenza, unspecified formulation 02/26/2014 completed Staci Andrade, JASMINE [address] [facility] [place], [address], [facility] 03/10/2022 19:19:58 COVID-19, mRNA, LNP-S, PF, 30 mcg/0.3 mL dose 04/15/2021 completed Staci Andrade, JASMINE [address] [place] [address] [place], [address], [facility] 03/10/2022 19:19:58 Hep B, adult 03/09/2021 completed Staci Andrade, JASMINE [address] [place] [address] [place], [address], [facility] 03/10/2022 19:19:58 pneumococcal polysaccharide PPV23 03/09/2021 completed Staci Andrade, JASMINE [address] [place], [address], [facility] 03/10/2022 19:19:58 Hep B, adult 12/16/2020 completed Staci Andrade, JASMINE [address] [place] [address], [address], [facility] 03/10/2022 19:19:58 Influenza, seasonal, injectable 03/06/2010 completed Staci Andrade, JASMINE [address] [place] [address] [place], [address], [facility] 03/10/2022 19:19:58 Tdap 03/11/2015 completed Staci Andrade, JASMINE [address] [place] [address], [address], [facility] 03/10/2022 19:19:58 COVID-19, mRNA, LNP-S, PF, 30 mcg/0.3 mL dose 03/18/2021 completed ERIC CRUZ [address] [place] [address], [address], [facility] 03/18/2021 15:32:07 Past Encounters Encounter ID Performer Location Encounter Start Date Encounter Closed Date Diagnosis/Indication Diagnosis SNOMED-CT Code Staci Andrade NP [facility] [address] [place] [address] [place] [address] 12/31/2020 15:03:57 12/31/2020 15:56:57 Opioid dependence, on agonist therapy 8343653149150 Intravenous drug user 22 [id number] Staci Andrade NP [facility] [address] [place] [address] [facility]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 Today's visit is done via [employer] telemedicine platform while she is on her break at [employer]. Past month has been good: busy working. Will have her first weekend off this coming weekend. Not sure how she will spend it. Improvement with ex is improving and she continues to work with her colorer hides [employer]. Celebrated son's birthday along with ex . Saw Dr. Walsh yesterday: trying to stabilize mood before changing ADHD medication. Feels more confident in her medication regimen there and is back on Latuda. Still occasionally going to [employer] group. Feeling stable on her Suboxone dose. No side effects, no cravings. Partner, David, is now off parole. He relapsed with methamphetamines and heroin and got into trouble at work. Gabbi threatened to leave as this would put her custody in general. David is back to being sober. Gabbi did not use. [address] She had a job interview at [employer] but she didn't go to it. She felt too tired to go and she started feeling that she didn't want to work 12-hour shifts. She has now been in recovery for a year. Now feeling much more settled at work and feels comfortable at [employer]. Living with partner David's parents. 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 Today's visit is done via [employer] telemedicine platform. Visit was supposed to be in person but Gabbi's mother 4 days ago and she is dealing with arrangements. Gabbi is shares two accomplishments: (1) She and David went on vacation to [place] and neither of them used despite having multiple days off work (2) She did not use after the of her mother. I provided recognition and congratulations. Feels comfortable on dose; cravings well controlled. No side effects. Has signed a lease on an apartment at the [facility] in [place]. This is a big step as she will be able to move out her partner's parent's house. No medication changes from Dr. Walsh. Has asked for a court continuance due to mother's . Still occasionally going to [employer]. 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 Grieving after recent of her mother but doing OK. Had a tattoo done with her mother's name. Now living in her new apartment which is exciting and liberating. Had a near miss; bought heroin but then flushed it after talking to a friend. Could not identify any triggers, felt great relief when she flushed the drugs. Comfortable with dose. No cravings. Continues to struggle with constipation, well managed with Miralax. On Tuesday will learn if she regains partial custody of her children. No medication changes from Dr. Walsh. Still occasionally going to [employer]. 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 Today's visit done via [employer]. On a break from work and at home eating a late lunch. Custody hearing was delayed: pushed out 45 days as they did not have all paperwork. Gabbi is working with her colorer hides and skins to provide all of this documentation. Had COVID-19 again. Barely took time off work and doesn't feel she is recovering well. Did not felt supported at work with this illness. Saw Dr. Walsh in late January: no changes. Gabbi is hoping to change to Adderall from Concerta but Dr. Walsh is waiting until her mood is better. She will bring this up at their next appointment in March. No more near misses: I've been doing great. Feels stable on Suboxone dose with no cravings and no withdrawal symptoms. Constipation managed with Miralax. 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 Today's visit done via [employer]. Seen in her car today. Has slowly recovered from her COVID-19 last month. Things are OK at work but she got pulled into the office today for a minor issue which was discouraging. Will need a note today. Just waiting to go before the remote sensing specialist for her custody hearing. Had a recent triggering episode of seeing some drugs but not taking them. For the next two days, she felt an increase in afternoon cravings. Avoided using by reminding herself of all the repercussions. I've come so far, it's not worth it at this point. Gabbi did try a 2mg film of her partner David's to see if that would help with these afternoon cravings and feels it helped. She asks if we could consider adding a 2mg dose in the afternoon. Saw Dr. Walsh in late January. Planning on seeing him again in March. She is struggling with more depression and will bring that up with him. 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 Accompanied today by her fianc David Gabbi is doing well. However, she is in the middle of a severe genital herpes outbreak. This is her third outbreak in less than 2 months. Believes they were triggered by post-Halloween chocolate and then stress. Would like to return to daily acyclovir. Does not have a PCP currently. Gabbi had her custody hearing on Tuesday. She has a new colorer hides and skins who she feels is much better; felt better represented. Gabbi is feeling more hopeful about custody. Decision should come after . Saw Dr. Walsh in March; he is not opposed to Adderall but wants to make sure shortage is over first. Mood is stable. Next visit with Dr. Walsh will be in new year. We discussed relapse prevention, especially with the upcoming holidays. Gabbi notes that staying sober is able to bring them presents. Kids are her main reason to remain sober as she is well aware of the repercussions of returning to use. Denies any use; no increase in cravings or near misses. Not currently engaged in [facility] or [employer]. 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 Today's visit done via [employer] platform. Holidays were difficult: Gabbi used methamphetamines the day after . Used once only. Her father sent her a nasty message on and this impacted her a great deal. Grandfather is also in the hospital and has signed over the house to Gabbi; this may put her MA in jeopardy. She has been caring for him and our poor winter weather has means she hasn't been able to travel to see her sons as much as she would like. The stress of worrying about losing her job r/t a random UDS was intense. She feels this is a deterrent. Tonie Hernandez was very supportive. Otherwise feels stable on Suboxone with no cravings, opiate use. Constipation management with Miralax. Custody declaration is still pending. Following up with Dr. Walsh in June. Tolerating daily Acyclovir well with no more outbreaks. Not engaged in [employer] or [employer]. 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 Today's visit done in person Gabbi is still working with custody courts. Trying to increase parenting time and lift restrictions for David visiting. She requested copies of her UDS several weeks ago. She is concerned that one of these UDS is + for cannabinoids. I reviewed record: 03/18/21 UDS was reported as + for cannabinoids. I advised these are not legally admissible tests but point of care urine drug screens. I put an addendum in her chart on that date noting that this positive result would have needed to be sent for confirmatory analysis to count it as a true positive. Gabbi denies any illicit drug use at that time and notes she was living in sober housing with frequent UDS testing at that time. Gabbi feels stable on Suboxone with no cravings, opiate use. Constipation management with Miralax. Work is again very stressful; she may be demoted. Feels like she is under a microscope. Following up with Dr. Walsh in June. Aware he is gradually retiring and has been referred to his colleague. Tolerating daily Acyclovir well with no more outbreaks. Doing aftercare these past 2 weeks at [facility]. 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 Today's visit done virtually via [employer]me. Still dealing with custody issues. Ex- has claimed son on taxes and that has caused difficulties. Feels she doesn't have enough time for everything. Work stress has somewhat stabilized but she is still on an improvement plan there. Still doing some aftercare at [facility] but feels it doesn't fit my needs. Wishes she could attend more meetings but is limited by time. Wishes Dr. Walsh would switch her to Adderall from Concerta. Despite stressors, Gabbi feels stable on Suboxone with no cravings, opiate use. Constipation management with Miralax. Work is again very stressful; she may be demoted. Feels like she is under a microscope. 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 Today's visit done virtually via [employer]. She was written up at work by her boss but her boss's core drilling supervisor ultimately sided to Gabbi which felt validating. Feels stable on her Suboxone 16mg/4mg/day. No sedation, no cravings, no withdrawals. No near misses. Did have a craving last week for meth but was able to handle this without using. Custody issue still pending. Her colorer hides and skins is concerned about her ability to understand legal matters and has referred her for a competency evaluation. Remains in aftercare at [facility]. Constipation management with Miralax. Is about to run out of her daily Valtrex for recurrent genital herpes and has not been able to schedule a PCP visit. Asks for refills. 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 Today's visit done virtually via [employer]. Needs a letter stating that the drug tests were from [facility]. I put that in an email at patient's request. Feels health is pretty good. Feels stable on her Suboxone 16mg/4mg/day. No sedation, no cravings, no withdrawals. No near misses. Occasional cravings, but minor. Handles by thinking through consequences of use. Custody issue still pending. She is moving forward wtih the competency evaluation ordered by her colorer hides and skins. Remains in aftercare at [facility]: alumni groups on Tuesday. Constipation management with Miralax. Has not had a PCP visit since our last visit. 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 Today's visit done virtually via [employer]me initially but due to poor connection we switched to a phone call. Had a recent illness and missed work. This upset management. Frustrated to be told she needs to be a team player. She is frustrated as she keeps being scheduled to work Tuesday when she needs to attend [facility]. Had some recent episodes of palpitations. Had an evaluation and told everything was OK. Feels somewhat stable on her Suboxone 16mg/4mg/day. Sometimes feels she has more urges to use although she can't verbalize exactly what these cravings are for. These cravings typically happens around noon, 4 hours after her morning dose 16mg/4mg. I confirmed that patient was taking Suboxone correctly (dissolving 15 minutes, no food or drink). Custody issue still pending. Thinking of hiring a new colorer hides [employer] skins. Remains in aftercare at [facility]: alumni groups on Tuesday (these are court ordered). Constipation management with Miralax. Has not had a PCP visit since our last visit. 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 Reached at home via telephone. Patient is home sick with a headache, stomachache. Has not yet had a COVID test; partner David is also ill. Things are going good. Relieved that she finally has a court date for her custody hearing; date will be the end of December. Feels more stable on her Suboxone 16mg/4mg/day this month. Just 1-2 cravings/all month. Denies any opiate or unprescribed stimulant use. Remains in aftercare at [facility]: alumni groups on Tuesday (these are court ordered). Constipation management with Miralax. Needs refills. 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 Gabbi was unable to attend out last visit 12/15 but we agreed to reschedule today and I provided a short refill to last her until today. Court date r/t custody has moved back to March due to missing paperwork. This has been devastating to hear. Has wanted to use but has not. Has used sleep as a coping strategy. Mood has been negative and sad. Seeing new psychiatrist: will soon establish care with MELISA Starkey. 01/31. Not interested in talk therapy. Would like an increase in her Suboxone 16mg/4mg/day this month. Ran out early last month and took a higher dose for several days. [place] much more stable, less using-related anxiety. Denies any opiate or unprescribed stimulant use. Remains in aftercare at [facility]: alumni groups on Tuesday (these are court ordered). Constipation management with Miralax. 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 Today's visit done via telemedicine. Things are going well on the higher dose of Suboxone (12mg/3mg in morning, 8mg/2mg in evening): helping with cravings and anxiety. She would like to remain on this dose. No cravings, no near misses or use. Body has felt healthy; mood has been pretty good. She has established care with Oliver Juarez, MELISA. She is very pleased with the switch to Adderall and this has helped cravings. Missed [employer] this week due to attending her son's [employer] meet. However, attends these regularly. Court date r/t custody planned for March. Planning on calling colorer [employer] tomorrow; she has not been able to connect with to find out what documentation she needs. Constipation management with Miralax. 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 Today's visit done via telemedicine. Patient was struggling with her internet connection and so today's visit done via phone. I reached Gabbi ball she was at work. She will working Tuesday - Tuesday at [employer] this holiday. 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 Things at home are stable; no movement with custody issues. Hearing likely won't be until May I'm getting sick of it being drawn out all the time. She will get to see her boys tomorrow, Thanksgiving. No other changes in health, mood. She is having some side effects of her [facility] medications (palpitations); working with Joe Juarez on that, [facility] to adjust this. Has stopped Elavil and started Clonidine. Things continue to go well on the higher dose of Suboxone (12mg/3mg in morning, 8mg/2mg in evening): helping with cravings and anxiety. She would like to remain on this dose. No cravings, no near misses or use. Constipation management with Miralax. 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 Finally has a court date: June 30 (custody); ideally would get parenting time back and hopefully increase. June 17 (likely probation). Cravings are well managed on current dosing. However, we did discuss the option of taking her higher dose in the evening to prevent any sedation that might counteract her ADHD medications. No cravings, no near misses or use. No other changes in health, mood. Medications reconciled; continues regular care with Joe MOSES to adjust this. Has stopped Elavil and plan is also to stop Clonidine. Things continue to go well on the higher dose of Suboxone (12mg/3mg in morning, 8mg/2mg in evening): helping with cravings and anxiety. She would like to remain on this dose. Constipation management with Miralax. 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 Constipation management with Miralax. Staci Andrade, CHILDREN'S AUTHOR [address] [place], [address], [facility] 07/20/2023 17:14:50 OBGyn Episode No OBEpisode recorded.
--- NOTE | 2023-08-30 00:37 | ED.HEATRA ---
HPI - Head Injury General Date Seen: 08/30/23 Chief complaint: Head Injury/Pain Stated complaint: hit head at work Time Seen by Provider: 08/29/23 23:22 Source: patient Mode of arrival: ambulatory Limitations: no limitations History of Present Illness HPI Narrative: Patient is a 37-year-old female presenting to the emergency department for a head injury. She states she was at work when she stood up too fast and hit the back for head on a steel beam. She works at [employer]. States this happened around 14:30. Initially was having a lot of pain in her occipital region of her head and was very nauseated. She states she is very difficult to concentrate and says she has some difficulty remembering everything she did for the next few hours after she had her head because she felt foggy. States symptoms have improved significantly since then is currently only having mild headache. Is not having any more nausea and feels otherwise back to normal. No other concerns noted at this time. Related Data Home Medications Medication Instructions Recorded Confirmed buprenorphine 8 mg-naloxone 2 mg 10 mg sublingual BID 09/27/22 04/12/23 sublingual film bupropion HCl 100 mg tablet,12 hr 100 mg PO QAM 09/27/22 04/12/23 sustained-release bupropion HCl 300 mg 24 hr tablet, 300 mg PO QAM 09/27/22 04/12/23 extended release cholecalciferol (vitamin D3) 50 50 mcg PO DAILY 09/27/22 04/12/23 mcg (2,000 unit) capsule lurasidone 120 mg tablet 120 mg PO QPM 09/27/22 04/12/23 dextroamphetamine-amphetamine 10 1 tab PO DAILY 04/12/23 04/12/23 mg tablet dextroamphetamine-amphetamine ER 1 cap PO DAILY 04/12/23 04/12/23 20 mg 24hr capsule,extend release polyethylene glycol 3350 17 g PO DAILY PRN constipation 04/12/23 gram/dose oral powder valacyclovir 500 mg tablet 500 mg PO DAILY 04/12/23 04/12/23 Allergies Allergy/AdvReac Type Severity Reaction Status Date / Time No Known Drug Allergies Allergy Verified 09/27/22 22:34 Review of Systems Status of ROS: Reports: 10 or more systems reviewed and unremarkable except as noted in History and below PFSH PFSH Social History Smoking Status: Current every day smoker Do you use any of these nicotine containing products: None Second hand tobacco smoke exposure: No How often do you have a drink containing alcohol: 2-4 times a month AUDIT-C Alcohol total score: 2 Non-prescribed substance use: denies use Exam Narrative: Exam Narrative: Const: Well-nourished, Well-developed, in mild distress Eyes: PERRL, no conjunctival injection, and symmetrical lids HENT: Atraumatic external nose and ears. Moist mucous membranes. Neck: Symmetric, trachea midline, No thyromegaly. CVS: RRR, No murmurs or gallops. Peripheral pulses 2+ and equal in all extremities RESP: Unlabored respiratory effort. Clear to auscultation bilaterally. GI: Nontender/Nondistended, No rebound or guarding. MSK:Extremities w/o deformity, Normal Active ROM Skin: Warm, Dry. No rashes or lesions. Neuro: Normal Muscle tone, Cranial nerves 2-12 grossly intact, normal [id number], normal [id number], normal gait, normal strength 5/5 upper lower extremities bilaterally, normal sensation upper and lower extremities bilaterally, normal rapid alternating movements. Psych: Awake, Alert, & Oriented x3. Appropriate mood and affect. Const: Vital Signs, click to edit/add: Vital Signs - 24 hr 08/29/23 22:12 Temperature 97.4 F L Pulse Rate [Right] 86 Respiratory Rate 16 Blood Pressure [Ri ght Upper Arm] 154/85 H Pulse Oximetry 97 Oxygen Delivery Me thod Room Air Course Vital Signs Vital signs: Initial Vital Signs Temperature 97.4 F L 08/29/23 22:12 Temperature Source Temporal Artery Scan 08/29/23 22:12 Pulse Rate 86 08/29/23 22:12 Pulse Rhythm Regular 08/29/23 22:12 Respiratory Rate 16 08/29/23 22:12 Blood Pressure 154/85 H 08/29/23 22:12 Blood Pressure Mean 108 H 08/29/23 22:12 Blood Pressure Position Sitting 08/29/23 22:12 Pulse Oximetry 97 08/29/23 22:12 Oxygen Delivery Method Room Air 08/29/23 22:12 Vital Signs Temperature 97.4 F L 08/29/23 22:12 Pulse Rate 86 08/29/23 22:12 Respiratory Rate 16 08/29/23 22:12 Blood Pressure 154/85 H 08/29/23 22:12 Pulse Oximetry 97 08/29/23 22:12 Oxygen Delivery Method Room Air 08/29/23 22:12 Temperature 97.4 F L 08/29/23 22:12 Pulse Rate 86 08/29/23 22:12 Respiratory Rate 16 08/29/23 22:12 Blood Pressure 154/85 H 08/29/23 22:12 Pulse Oximetry 97 08/29/23 22:12 Oxygen Delivery Method Room Air 08/29/23 22:12 MDM - Head Injury MDM Narrative Medical decision making narrative: Patient is a 37-year-old female presenting to the emergency department for closed head injury after hitting her head at work. While my concern for intracranial bleeding or skull fracture is very low at this time considered she is otherwise acting normally I will do a head CT considering this occurred at work and I Wanna make sure there is nothing going on. While she has all the went with to look for a traumatic subarachnoid hemorrhage her symptoms were not near severe left for me to think that is what she was suffering from. Do not believe she needs a lumbar puncture. Do not believe we need any lab work at this time. Is not requesting any medication currently. CT scan of the head was done reviewed by myself and the radiologist showing no concerning abnormalities. She is otherwise doing walk be discharged home. She is agreeable to this plan. She likely suffered from a concussion. Imaging Data CT scan - head: Attestation: I have reviewed the pertinent imaging results. Radiologist's impression: 1. No evidence of acute infarction, intracranial hemorrhage, or mass-effect seen. Please note that all CT scans at this facility use dose modulation, iterative reconstruction, and/or weight-based dosing when appropriate to reduce radiation dose to as low as reasonably achievable. Dictated by: Andreas Morocho MD @ 08/30/2023 00:37:24 Discharge Plan Discharge Clinical Impression: Closed head injury Qualifiers: Encounter type: initial encounter Qualified Code(s): S09.90XA - Unspecified injury of head, initial encounter Patient Disposition: Home, Self-Care Condition: Stable Instructions: Concussion (ED) Additional Instructions: Take Tylenol and ibuprofen for pain. Return to emergency department for new worsening symptoms. Elected the risks of concussion. You can return to work full-time when your symptoms resolve as the congestion symptoms may make it difficult to concentrate over the next few days which could make work difficult. Prescriptions: No Action bupropion HCl 100 mg tablet sustained-release 12 hr 100 mg PO QAM bupropion HCl 300 mg tablet extended release 24 hr 300 mg PO QAM cholecalciferol (vitamin D3) 50 mcg (2,000 unit) capsule 50 mcg PO DAILY buprenorphine-naloxone 8-2 mg film 10 mg sublingual BID lurasidone 120 mg tablet 120 mg PO QPM dextroamphetamine-amphetamine 10 mg tablet 1 tab PO DAILY valacyclovir 500 mg tablet 500 mg PO DAILY dextroamphetamine-amphetamine 20 mg capsule,extended release 24hr 1 cap PO DAILY polyethylene glycol 3350 17 gram/dose powder PO DAILY PRN (Reason: constipation) Follow Up/Referrals: Provider,Not a Local [Primary Care Provider] - Stand Alone Forms: [facility] Info Instructions
== END 2023-08-30 00:58 | disposition home or self-care (01) ==
PROVIDERS: Emergency Provider Student in an Organized Health Care Education/Training Program
DX: S09.90XA Unspecified injury of head, initial encounter (principal); W22.8XXA Striking against or struck by other objects, initial encounter; Y99.0 Civilian activity done for income or pay
CPT/HCPCS: 70450; 99282; 99283

== ENCOUNTER 2024-05-27 00:44 | Emergency (ER) | payer OTHER, SELFPAY ==
--- OUTSIDE RECORDS SUMMARY | 2024-05-27 00:46 | XMS_ITS | Clinical Summary ---
Author Organization [facility] Address [place], [place] [address] Care Team Providers Care Experimental Physicist Name Role Phone Staci Villegas MD Primary Care Provider [phone] Allergies Active Allergy Reactions Criticality Noted Date Comments Doxapram Hives 01/13/2018 Doxepin Hives 10/07/2015 Ibuprofen Hives,Angioedema 01/13/2018 Pollen Extracts Dizziness 09/27/2015 Seasonal Allergies Medications buPROPion (WELLBUTRIN XL) 150 mg Extended-Release tabletIndications: Attention deficit hyperactivity disorder (ADHD), combined type,Major depressive disorder, recurrent, moderate (HC) Take 1 tablet by mouth every morning. 30 tablet 1 8 Active buprenorphine-nalo xone (SUBOXONE) 12-[address] 1 Film under the tongue once daily. Active buprenorphine-nalo xone (SUBOXONE) 8-[address] 1 Film under the tongue once daily. 1 Active cloNIDine HCL (CATAPRES) 0.2 mg tablet Take 0.2 mg by mouth once daily. Active dextroamphetamine- amphetamine (ADDERALL) 10 mg tablet Take 10 mg by mouth once daily. Active dextroamphetamine- amphetamine (ADDERALL XR) 20 mg Extended-Release capsule Take 20 mg by mouth once daily. Active LORazepam (ATIVAN) 1 mg tablet Take 1 mg by mouth at bedtime if needed. Active lurasidone 60 mg tab Take 60 mg by mouth with dinner. Active omeprazole (PRILOSEC) 20 mg Delayed-Release capsule Take 20 mg by mouth once daily before a meal. 1 Active polyethylene glycoL (MIRALAX) 17 gram/scoop powder Mix 17 g in liquid then take by mouth once daily if needed. 4 Active SUMAtriptan (IMITREX) 50 mg tablet As directed 50 mg. 1 Active valACYclovir (VALTREX) 500 mg tablet Take 500 mg by mouth once daily. Active Active Problems Problem Noted Date Diagnosed Date Attention deficit hyperactiv ity disorder (ADHD), combined type 02/08/2018 History of drug dependence/abuse 02/08/2018 Anxiety 02/08/2018 Resolved Problems Problem Noted Date Diagnosed Date Resolved Date Major depressive disorder, r ecurrent, moderate 02/08/2018 10/26/2023 Immunizations Name Administration Dates Next Due DTP [...] Years Used Date Smoking Tobacco: Every Day Cigarettes Smokeless Tobacco: Never Tobacco Cessation:Ready to Q uit: No; Counseling Given: Yes Comments:5 cigarettes Alcohol Use Standard Drinks/Week Comments No 0 (1 standard drink = 0.6 oz pur e alcohol) [facility] Utilities Answer Date Recorded Do you have trouble paying f or utilities (for example, heat, electricity, water, phone)? Yes 08/03/2023 PHQ-2 Answer Date Recorded PHQ-2 Score 4 07/10/2018 Social Connections Answer Date Recorded Do you often feel lonely or isolated from those around you? 0 08/03/2023 Financial Resource Strain Answer Date R ecorded Difficulty of Paying Living Expenses 3 08/03/2023 Difficulty of Paying Living Expenses Not on file 08/03/2023 Food Insecurity Answer Date Recorded Do you worry your food will run out before you are able to buy more? 1 08/03/2023 Transportation Needs Answer Date Record ed Does lack of transportation keep you from medica l appointments? 1 08/03/2023 Does lack of transportation keep you from work, meetings or getting things that you need? 1 08/03/2023 Housing Stability Answer Date Recorded What is your housing situation today? 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 Gender Identity Not on file Sexual Orientation Not on file Obstetrics History Last Filed Vital Signs Vital Sign Reading Time Taken Comments Blood Pressure 146/90 11/14/2023 12:54 PM CDT Pulse 93 11/14/2023 12:54 PM CDT Temperature 37.1 C (98.7 F) 01/04/2021 12:11 PM CDT Respiratory Rate 16 01/04/2021 12:11 PM CDT Oxygen Saturation 99% 11/14/2023 12:54 PM CDT Inhaled Oxygen Concentration - - Weight 67.1 kg (148 lb) 11/14/2023 12:54 PM CDT Height 165.1 cm (5' 5) 10/10/2023 8:33 AM CDT Body Mass Index 24.63 10/10/2023 8:33 AM CDT Plan of Treatment Health Maintenance Due Date Last Done Comments Depression screening for age 12+ 02/08/2019 02/09/20 18 Pneumococcal series for age 6-49 (2 of 2 - PCV) 03/09/2022 03/09/2021 COVID-19 vaccine series (3 - 2023- season) 2024 04/15/2021, 03/18/2021 Influenza for age 9-49 01/08/2024 5, 02/05/2015, 02/26/2014, Additional history exists BMI (ht and wt on same day) for age 18+ 10/09/2024 10/10/2023, 02/08/2018 Tetanus booster 03/11/2025 03/11/2015, 06/10, 06/23/2005, Additional [...] * ANTI HCV (01/14/2021 4:24 PM CDT) Pathologist [facility] HEPATITIS C ANTIBODY Non-React grecia Non-React grecia 01/15/2021 4:23 PM CDT [facility] Comment:Antibodies to HCV no t detected; does not exclude the possibility of exposure to HCV. Blood BLOOD SPECIMEN / Unknown 01/14/2021 4:24 PM CDT 01/15/2021 9:37 AM CDT Staci Andrade RN, TOOL POLISHER SEND OUTS Final Result [facility] [address] [place] [address], * ANTI HIV 1/2 (01/14/2021 4:24 PM CDT) Pathologist [facility] HIV-1/HIV-2 ANTIBODY Non-Reacti ve Non-Reacti ve 01/15/2021 5:00 PM CDT [facility] Comment:HIV-1 p24 and HIV-1/ HIV-2 Ab not detected. Blood BLOOD SPECIMEN / Unknown 01/14/2021 4:24 PM CDT 01/15/2021 9:37 AM CDT Staci Andrade RN, TOOL POLISHER S[employer] OUTS Final Result [facility] [address] [place] [address], [place] from Last 3 Months or Most Recently Relevant to Health Maintenance Insurance MEDICARE PART A HB ONLY [facility] INDIVIDUAL AND FAMILY PLANS [facility] [employer] Care Teams Experimental Physicist Relationship Specialty Start Date End Date Staci Villegas MD [address] [place] [address] [id number] PCP - General 02/08/20
--- OUTSIDE RECORDS SUMMARY | 2024-05-27 00:46 | XMS_ITS | Continuity of Care Document ---
Author Name Nw[facility]IN User [email or web address] Address Unknown Organization Unknown Address Unknown Procedures FILTER APPLIED:Only known Procedures with Onset Date within the last 5 years Procedure Date Procedure Provider Additiona l Information Status CT HEAD/BRAIN W/O DYE (52527) Completed EMERGENCY DEPT VISIT LOW MDM (45237) Completed EMERGENCY DEPT VISIT MOD MDM (13871) Completed CT HEAD/BRAIN W/O DYE (21616) Completed HEPATIC FUNCTION PANEL (40752) Completed ASSAY SPEC XCP UR BREATH IA (36053) Completed COMPLETE CBC W/AUTO DIFF WBC (43462) Completed C-REACTIVE PROTEIN (77995) Completed THER/PROPH/DIAG INJ IV PUSH (04730) Completed ROUTINE VENIPUNCTURE (23134) Completed METABOLIC PANEL TOTAL CA (07325) Completed EMERGENCY DEPT VISIT LOW MDM (47512) Completed Encounters FILTER APPLIED:Only known Encounters with Admission Date within the last 5 years Encounter Location Admission Discharge Billing Code Consultant Annette douglas [facility] Lawrence galvez
--- OUTSIDE RECORDS SUMMARY | 2024-05-27 00:46 | XMS_ITS | Data Portability ---
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 with Dr. Walsh at their visit next week to see if adjusting her mood medication s would be a better solution to these concerns. I explained that an additional 2mg/0.25mg of Suboxone is unlikely to help at this point. Stable employment , stable housing in own apartment. Custody hearing delayed until later this month. Workplace stress has increased again but patient feels equipped to handle it.Support and encouragem ent provided. 30 day supply sent to [facility]; SOFTWARE QUALITY ENGINEER reviewed with no concerns. RTC 4 weeks in person with UDS. No concern for r/t hysterecto my. 34066 Staci Andrade NP [facility] [address] [place] [address] 04/14/2022 10:08:08 04/14/2022 10:39:36 Opioid dependence 11358269 F11.20 Discussion triggers and upcoming holidays. We discussed first and second-lloyd e phone calls if/when she had increased cravings. Suggested NA meeting in [place] with peer personal injury law specialist Jaiden Hernandez. [employer] group on Tuesday, too. Stable on current dose of Suboxone 16mg/4mg/d ay split BID with no recent near-miss or unmanageab le cravings. Stable employment , stable housing in own apartment. Custody decision pending. Workplace stress stable.Sup port and encouragem ent provided. 30 day supply sent to [facility]; SOFTWARE QUALITY ENGINEER reviewed with no concerns. UDS with no concerns. RTC 4 weeks virtually. No concern for r/t hysterecto my. Genital he rpes simplex [id number] A60.9 Daily suppressiv e therapy requested and appropriat e. We agreed I would prescribe a 3-month supply and further refills from PCP. 18921 Staci Andrade NP [facility] [address] [place] [address] 05/12/2022 15:19:59 05/12/2022 15:48:59 Opioid dependence 26043841 F11.20 Stable on current dose of Suboxone 16mg/4mg/d ay split BID with no recent near-miss or unmanageab le cravings of opiates (although recent single episode of methamphet amine use) Stable employment , stable housing in own apartment. Custody decision remains pending. Workplace stress stable.Sup port and encouragem ent provided. 30 day supply sent to [facility]. I will be out of office in 4 weeks; therefore 1 refill provided but patient will follow up in person in 5 weeks in person. SOFTWARE QUALITY ENGINEER reviewed with no concerns. No concern for r/t hysterecto my. Methamphetamine abuse 69 [id number] F15.10 Recent single use r/t stressors. Patient is motivated to not use again. Continue to follow and support. 78469 Staci Andrade NP [facility] [address] [place] [address] 06/16/2022 15:29:18 06/16/2022 15:58:40 Opioid dependence 08655629 F11.20 Stable on current dose of Suboxone 16mg/4mg/d ay split BID with no recent near-miss or unmanageab le cravings of opiates. We will send off a true UDS (non-POCT) today. Stable employment , stable housing in own apartment. Custody decision continues to be pending. Workplace stress worsening. I have offered and encouraged talk therapy (see below). Support and encouragem ent provided.3 0 day supply sent to [facility]. SOFTWARE QUALITY ENGINEER reviewed with no concerns. No concern for r/t hysterecto my. Stress and adjustment reaction [id number] F43.9 Serious workplace stressors in the setting of OUD and pending custody issues. Sees psychiatri st regularly. Patient is somewhat open to the idea of talk therapy. Referral placed; patient may decide to proceed if she wishes. 41045 Staci Andrade NP [facility] [address] [place] [address] 07/14/2022 15:29:13 07/14/2022 16:15:46 Opioid dependence 91457021 F11.20 Stable on current dose of Suboxone 16mg/4mg/d ay split BID with no recent near-miss or unmanageab le cravings of opiates. Stable employment , stable housing in own apartment. Custody decision continues to be pending and this is a major stressor. Workplace stress ongoing. I continue to offer and encouraged talk therapy and engagement with local NA meetings. Support and encouragem ent provided.3 0 day supply sent to [facility]. SOFTWARE QUALITY ENGINEER reviewed with no concerns. UDS 07/01 is + buprenorph ine, ETOH (as reported). Patient is aware of concerns when mixing ETOH with buprenorph ine. No concern for r/t hysterecto my. 31061 Staci Andrade NP [facility] [address] [place] [address] 08/11/2022 15:47:20 08/11/2022 16:19:46 Opioid dependence 71636361 F11.20 Stable on current dose of Suboxone 16mg/4mg/d ay split BID with no recent near-miss or unmanageab le cravings of opiates. Stable employment , stable housing in own apartment. Custody decision continues to be pending and this remains a major stressor. Part Time Receptionist is now asking patient's competency to be evaluated. Workplace stress continues. Support and encouragem ent provided.3 0 day supply sent to [facility]. SOFTWARE QUALITY ENGINEER reviewed with no concerns. Last UDS 07/01 with no concerns; will repeat at next visit. No concern for r/t hysterecto my. Genital he rpes simplex 41208845 A60.9 Refills for daily suppressiv e therapy requested and appropriat e. Future refills should come from PCP. 74367 Staci Andrade NP [facility] [address] [place] [address] 09/08/2022 15:49:32 09/08/2022 16:10:16 Opioid dependence 84716518 F11.20 Stable on current dose of Suboxone 16mg/4mg/d ay split BID with no recent near-miss or unmanageab le cravings of opiates. Stable employment , stable housing in own apartment. Custody decision continues to be pending; competency evaluation underway. Workplace stress continues. Support and encouragem ent provided.3 0 day supply sent to [facility]. RTC 1 month in person, earlier with any questions. SOFTWARE QUALITY ENGINEER reviewed with no concerns. Last UDS 07/01 with no concerns; will repeat at next visit. No concern for r/t hysterecto my. 18477 Staci Andrade NP [facility] [address] [place] [address] 10/06/2022 15:59:23 10/06/2022 16:24:22 Opioid dependence 70261946 F11.20 Relatively stable on current dose of Suboxone 16mg/4mg/d ay split BID with no recent near-miss or unmanageab le cravings of opiates. Having some mid-day feelings of difficult- to-describ e sensations of unease, possibly cravings, although patient cannot articulate what she is cravings. Timing of dose and cravings make opiate cravings less likely. We discussed splitting her dose to BID to see if this helps; I also encouraged her to share this with Dr. Walsh, especially in light of recent palpitatio n episode and to discuss to see if her stimulants should be adjusted. Stable employment , stable housing in own apartment. Custody decision continues to be pending. Workplace stress continues. Support and encouragem ent provided.3 0 day supply sent to [facility]. RTC 1 month in person, earlier with any questions. SOFTWARE QUALITY ENGINEER reviewed with no concerns. Last UDS 07/01 with no concerns; will repeat at next visit. No concern for r/t hysterecto my. 73268 Staci Andrade NP [facility] [address] [place] [address] 11/03/2022 15:27:26 11/03/2022 15:47:21 Therapeutic opioid induced constipation [id number] 01436 K59.03 Continue Miralax, hydration. Continue to follow. Opioid dependence 813434 00 F11.20 WIth reduction in cravings this past month; now stable again on current dose of Suboxone 16mg/4mg/d ay split BID with no recent near-miss or unmanageab le cravings of opiates. Stable employment , stable housing in own apartment. Partnered; SO Is also in recovery. Custody decision to be made in court at the end of the summer. Workplace stress continues. Support and encouragem ent provided. 30 day supply sent to [facility] refill. I am await in 4 and 5 weeks so we will meet again in 6 weeks in person. Patient to call earlier with any questions or concerns. SOFTWARE QUALITY ENGINEER reviewed with no concerns. Last UDS 07/01 with no concerns; will repeat at next visit. No concern for r/t hysterecto my. 55698 Staci Andrade NP [facility] [address] [place] [address] 01/05/2023 14:31:13 01/05/2023 16:02:35 Genital herpes simplex 49498203 A60.9 Refills for daily suppressiv e therapy requested and appropriat e. Should come from PCP but patient has struggled to connect with a PCP. Opioid dep endence, on agonist therapy [id number] 105 F11.20 Feeling increased cravings related to situationa l stressors (r/t custody of children) and wishes to increase her Suboxone 16mg/4mg/d ay split BID to 12mg/3am qam, 8mg/2mg qpm as she had a trial period with this dose with good results. We will move forward with this dose increase. RTC 4 weeks virtually to review progress on this new dose, earlier with concerns. Encouraged to watch for any sedation with the higher morning dose. Oliver Juarez CNP, may take over prescripti ons in coming months. Stable, if stressful, employment . Support and encouragem ent provided. 30 day supply sent to pharmacy; SOFTWARE QUALITY ENGINEER reviewed with no concerns. Will also collect full drugs of abuse panel today. Patient is looking for documentat ion of her ongoing abstinence . I will also be happy to write a summary of care letter attesting to Gabbi's good standing in our clinic. No concern for r/t hysterecto my. [id number] Staci Andrade NP [facility] [address] [place] [address] 02/02/2023 15:55:19 02/02/2023 16:58:00 Opioid dependence, on agonist therapy [id number] 105 F11.20 Increased cravings related to situationa l stressors (r/t custody of children) have responded well to increased dose of Suboxone: now 12mg/3am qam, 8mg/2mg qpm. No sedation or other side effects noted other than longstandi ng constipati on. 1 month + refill sent to [facility] [place]. Patient will RTC 8 weeks virtually instead of 4 weeks r/t terminal make up operator stability as well as co-managem ent with psychiatry . To call earlier with concerns. Patient wishes to continue MOUD treatment here; will continue with Oliver Juarez CNP for mood and ADHD management . Stable employment less stressful these past months. Support and encouragem ent provided. SOFTWARE QUALITY ENGINEER reviewed with no concerns. No concern for r/t hysterecto my. At least 15 minutes spend with patient, reviewing chart and completing documentat ion. 25900 Staci [address]rade [address] [facility] [address] [place] [address] 03/30/2023 16:27:23 03/30/2023 17:36:11 Opioid dependence, on agonist therapy [id number] 105 F11.20 Stable housing, stable employment and stable relationsh ip. Cravings and withdrawal symptoms well managed on Suboxone 12mg/3am qam, 8mg/2mg qpm. No sedation or other side effects noted other than longstandi ng constipati on. 1 month + refill sent to [facility]. Patient will RTC 8 weeks in person r/t group home stability as well as co-managem ent with psychiatry . To call earlier with concerns. Will continue with Oliver Juarez CNP for mood and ADHD management . Support and encouragem ent provided. SOFTWARE QUALITY ENGINEER reviewed with no concerns. No concern for r/t hysterecto my. At least 15 minutes spend with patient, reviewing chart and completing documentat ion. [address] [facility] [facility] [address] [place] [address] 05/25/2023 16:29:09 05/25/2023 17:24:12 Opioid dependence, on agonist therapy 1037130184 105 F11.20 Stable housing, stable employment and stable relationsh ip. Cravings and withdrawal symptoms well managed on Suboxone 12mg/3am qam, 8mg/2mg qpm. We will try higher dose in morning to offset any concern that ADHD medication s are less effective by potential sedation from buprenorph ine. Upcoming court date will reduce anxiety as she will hopefully have her parenting time restored and will finally have sentencing for her criminal charges. No sedation or other side effects noted other than longstandi ng constipati on. 1 month + refill sent to [facility]. Patient will RTC 8 weeks in person r/t group home stability as well as co-managem ent with psychiatry . To call earlier with concerns. Will continue with Oliver Juarez CNP for mood and ADHD management . Support and encouragem ent provided. SOFTWARE QUALITY ENGINEER reviewed with no concerns. No concern for r/t hysterecto my. At least 15 minutes spend with patient, reviewing chart and completing documentat ion. Therapeuti c opioid induced constipation [id number] 48728 K59.03 Continue Miralax, hydration. Continue to follow. 26676 Staci Andrade NP [facility] [address] [place] [address] 07/20/2023 16:18:24 07/20/2023 17:19:34 Opioid dependence, on agonist therapy [id number] 105 F11.20 Stable housing, stable employment and stable relationsh ip. Cravings and withdrawal symptoms continue to be well managed on Suboxone 12mg/3am qam, 8mg/2mg qpm. No sedation or other side effects noted other than longstandi ng constipati on. 1 month + refill sent to [facility]. Patient will RTC 8 weeks in person r/t group home stability as well as co-managem ent with psychiatry . To call earlier with concerns. Will continue with Oliver Juarez CNP for anxiety, mood and ADHD management . Now also prescribed a small supply of Ativan each month for severe anxiety episodes. Caution re. combinatio n of Ativan and Suboxone; no driving with these together. Support and encouragem ent provided. One court case has been resolved; custody still pending. SOFTWARE QUALITY ENGINEER reviewed with no concerns. No concern for r/t hysterecto my. At least 15 minutes spend with patient, reviewing chart and completing documentat ion. Therapeuti c opioid induced constipation [id number] 08959 K59.03 Continue Miralax, hydration. Continue to follow. 42214 Staci Andrade NP [facility] [address] [place] [address] 09/14/2023 15:47:06 09/14/2023 16:34:34 Opioid dependence 63027325 F11.20 Consolidat ing care with Joe Juarez. Gabbi is always welcome back here at [facility] if things change. She was very appreciati ve of our care here.F/U PRN. Health Concerns Section Related Observation LastModified by Organization Detai ls LastModified Time None Recorded Concern Status LastModified by Organization Details LastModified Time None Recorded Advance Directives Directive None Recorded Payers Encounter Date Sequence Insurance Name Policy Number Policy Tyson Covered Member ID Tyson Member ID Guarantor Name 02/02/2023 1 [place] Gabbi Swati Dimas [id number] Gabbi Judie 03/30/2023 1 [place] Gabbi Swati Dimas [id number] Gabbi Jduie 05/25/2023 1 [place] Gabbi Swati Dimas [id number] Gabbi Judie Notes Date Note Type Note Provider Name and Address Organization Details Recorded Time 02/02/2023 text/html Gabbi Dimas is a 37 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 She is very pleased with the switch to Adderall and this has helped cravings. Missed [facility] this week due to attending her son's X[employer] meet. However, attends these regularly. Court date r/t custody planned for March. Planning on calling baseball glove shaper tomorrow; she has not been able to connect with to find out what documentation she needs. Constipation management with Miralax. 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 Today's visit done via telemedicine. Patient was struggling with her internet connection and so today's visit done via phone. I reached Gabbi ball she was at work. She will working Tuesday - Tuesday at [employer] this holiday. She was considering applying for [...] is having some [facility] ([facility]pitations); working with Joe Juarez [...] management with Miralax. 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 Today's visit done virtually. Had a concussion at work. Nausea is improving; OMLINA are persisting along with cognitive changes. General trend of symptoms. Out of work and no waiting on disability paperwork. Oldest son, Evan, is graduating from [employer]. He will be working [employer] and then attending [employer]. 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 She will consolidate her care with PMHNP Joe Juarez. Staci Andrade NP [address] [place], [address], [facility] 09/14/2023 16:08:25 OBGyn Episode No OBEpisode recorded.
[2024-05-27 00:49] VITALS: BP 137/70; PULSE 100; RESP 16; TEMP 36; O2SAT 99; BMI 20.6
--- OUTSIDE RECORDS SUMMARY | 2024-05-27 01:25 | XMS_ITS | Continuity of Care Document ---
Author Name NwHIN User [email or web address] llowed Address Unknown Organization Unknown Address Unknown Procedures FILTER APPLIED:Only known Procedures with Onset Date within the last 5 years Procedure Date Procedure Provider Additiona l Information Status CT HEAD/BRAIN W/O DYE (71678) Completed EMERGENCY DEPT VISIT LOW MDM (35057) Completed EMERGENCY DEPT VISIT MOD MDM (90281) Completed CT HEAD/BRAIN W/O DYE (80081) Completed HEPATIC FUNCTION PANEL (88619) Completed ASSAY SPEC XCP UR BREATH IA (89865) Completed COMPLETE CBC W/AUTO DIFF WBC (75609) Completed C-REACTIVE PROTEIN (26569) Completed THER/PROPH/DIAG INJ IV PUSH (30774) Completed ROUTINE VENIPUNCTURE (03231) Completed METABOLIC PANEL TOTAL CA (51911) Completed EMERGENCY DEPT VISIT LOW MDM (51564) Completed Encounters FILTER APPLIED:Only known Encounters with Admission Date within the last 5 years Encounter Location Admission Discharge Billing Code Consultant Annette douglas [facility] Lawrence galvez
--- OUTSIDE RECORDS SUMMARY | 2024-05-27 01:25 | XMS_ITS | Clinical Summary ---
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 Blood BLOOD SPECIMEN / Unknown 01/14/2021 4:24 PM CDT 01/15/2021 9:37 AM CDT Staci Andrade RN, DIRECTOR OF COMMUNICATIONS SEND OUTS Final Result [facility] [address] [place] [address], * ANTI HIV 1/2 (01/14/2021 4:24 PM CDT) Pathologist [facility] HIV-1/HIV-2 ANTIBODY Non-Reacti ve Non-Reacti ve 01/15/2021 5:00 PM CDT [facility] Comment:HIV-1 p24 and HIV-1/ HIV-2 Ab not detected. Blood BLOOD SPECIMEN / Unknown 01/14/2021 4:24 PM CDT 01/15/2021 9:37 AM CDT Staci Andrade RN, DIRECTOR OF COMMUNICATIONS SEND OUTS Final Result [facility] [address] [place] [address], [place] from Last 3 Months or Most Recently Relevant to Health Maintenance Insurance MEDICARE PART A HB ONLY [facility] INDIVIDUAL AND FAMILY PLANS [facility] [employer] [place] Care Teams Grain Elevator Superintendent Relationship Specialty Start Date End Date Staci Villgeas MD [address] [place] [address] PCP - General 02/08/20
[2024-05-27] MEDS: cefTRIAXone 500 MG VIAL IM (03:13)
[2024-05-27] MEDS: LIDOCAINE 1% 5 ml (pf) 5 ML VIAL 1 ML IM (03:14)
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
== END 2024-05-27 03:17 | disposition home or self-care (01) ==
PROVIDERS: Emergency Provider Family Medicine
DX: T74.21XA Adult sexual abuse, confirmed, initial encounter (principal)
CPT/HCPCS: 99281; J0696

== ENCOUNTER 2024-11-28 13:05 | Emergency (ER) | payer OTHER, SELFPAY ==
--- OUTSIDE RECORDS SUMMARY | 2024-11-28 13:07 | XMS_ITS | Data Portability ---
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 decision continues to be pending; competency evaluation underway. Workplace stress continues. Support and encouragem ent provided.3 0 day supply sent to [facility] RTC 1 month in person, earlier with any questions. SOLE SKIVER reviewed with no concerns. Last UDS 07/01 with no concerns; will repeat at next visit. No concern for r/t hysterecto my. 37183 Staci Andrade NP [facility] [address] [place] [address] 10/06/2022 15:59:23 10/06/2022 16:24:22 Opioid dependence 39583617 F11.20 Relatively stable on current dose of [...] ent provided.3 0 day supply sent to [facility]. RTC 1 month in person, earlier with any questions. SOLE SKIVER reviewed with no concerns. Last UDS 07/01 with no concerns; will repeat at next visit. No concern for r/t hysterecto my. 92124 Staci Andrade NP [facility] [address] [place] [address] 11/03/2022 15:27:26 11/03/2022 15:47:21 Therapeutic opioid induced constipation [id number] 29382 K59.03 Continue Miralax, hydration. Continue to follow. Opioid dependence 335418 00 F11.20 WIth reduction in cravings this [...] call earlier with any questions or concerns. SOLE SKIVER reviewed with no concerns. Last UDS 07/01 with no concerns; will repeat at next visit. No concern for r/t hysterecto my. 81506 Staci Andrade NP [facility] [address] [place] [address] 01/05/2023 14:31:13 01/05/2023 16:02:35 Genital herpes simplex 54242279 A60.9 Refills for daily suppressiv e therapy requested and appropriat e. Should come from PCP but patient has struggled to connect with a PCP. Opioid dep endence, on agonist therapy [id number] 105 F11.20 Feeling increased cravings related to [...] provided. 30 day supply sent to pharmacy; SOLE SKIVER reviewed with no concerns. Will also collect full drugs of abuse panel today. Patient is looking for documentat ion of her ongoing abstinence . I will also be happy to write a summary of care letter attesting to Gabbi's good standing in our clinic. No concern for r/t hysterecto my. [id number] Staci Andrade NP [facility] [place] [address] 02/02/2023 15:55:19 02/02/2023 16:58:00 Opioid dependence, on agonist therapy [id number] 105 F11.20 Increased cravings related to situationa l stressors (r/t custody of children) have responded well to increased dose of Suboxone: now 12mg/3am qam, 8mg/2mg qpm. No sedation or other side effects noted other than longstandi ng constipati on. 1 month + refill sent to [facility]. Patient will RTC 8 weeks virtually instead of 4 weeks r/t meterman stability as well as co-managem ent with psychiatry . To call earlier with concerns. Patient wishes to continue MOUD treatment here; will continue with Olivre Juarez CNP for mood and ADHD management . Stable employment less stressful these past months. Support and encouragem ent provided. SOLE SKIVER reviewed with no concerns. No concern for r/t hysterecto my. At least 15 minutes spend with patient, reviewing chart and completing documentat ion. [id number] Staci Andrade NP [facility] [address] [place] [address] 03/30/2023 16:27:23 03/30/2023 17:36:11 Opioid dependence, on agonist therapy [id number] 105 F11.20 Stable housing, stable employment and stable relationsh ip. Cravings and withdrawal symptoms well managed on Suboxone 12mg/3am qam, 8mg/2mg qpm. No sedation or other side effects noted other than longstandi ng constipati on. 1 month + refill sent to [facility]. Patient will RTC 8 weeks in person r/t prison stability as well as co-managem ent with psychiatry . To call earlier with concerns. Will continue with Oliver Juarez CNP for mood and ADHD management . Support and encouragem ent provided. SOLE SKIVER reviewed with no concerns. No concern for r/t hysterecto my. At least 15 minutes spend with patient, reviewing chart and completing documentat ion. 73003 Staci Andrade NP [facility] [address] [place] [address] 05/25/2023 16:29:09 05/25/2023 17:24:12 Opioid dependence, on agonist therapy [id number] 105 F11.20 Stable housing, stable employment and [...] will RTC 8 weeks in person r/t prison stability as well as co-managem ent with psychiatry . To call earlier with concerns. Will continue with Oliver Juarez CNP for mood and ADHD management . Support and encouragem ent provided. SOLE SKIVER reviewed with no concerns. No concern for r/t hysterecto my. At least 15 minutes spend with patient, reviewing chart and completing documentat ion. Therapeuti c opioid induced constipation [id number] 08644 K59.03 Continue Miralax, hydration. Continue to follow. 65705 Staci Andrade NP [facility] [address] [place] [address] 07/20/2023 16:18:24 07/20/2023 17:19:34 Opioid dependence, on agonist therapy 5170250169 105 F11.20 Stable housing, stable employment and stable relationsh ip. Cravings and withdrawal symptoms continue to be well managed on Suboxone 12mg/3am qam, 8mg/2mg qpm. No sedation or other side effects noted other than longstandi ng constipati on. 1 month + refill sent to [facility]. Patient will RTC 8 weeks in person r/t prison stability as well as co-managem ent with [...] case has been resolved; custody still pending. SOLE SKIVER reviewed with no concerns. No concern for r/t hysterecto my. At least 15 minutes spend with patient, reviewing chart and completing documentat ion. Therapeuti c opioid induced constipation [id number] 04302 K59.03 Continue Miralax, hydration. Continue to follow. 57063 Staci Andrade NP [facility] [address] [place] [address] 09/14/2023 15:47:06 09/14/2023 16:34:34 Opioid dependence 98595001 F11.20 Consolidat ing care with Joe Juarez. Gabbi is always welcome back here at [facility] if things change. She was very appreciati ve of our care here.F/U PRN. Health Concerns Section Related Observation LastModified by Organization Detai ls LastModified Time None Recorded Concern Status LastModified by Organization Details LastModified Time None Recorded Advance Directives Directive None Recorded Payers Insurance Date Sequence Insurance Name Policy Number Policy Tyson Covered Member ID Tyson Member ID Guarantor Name 07/21/2023 1 [id number] Gabbi Dimas [id number] Gabbi Dimas 07/21/2023 1 [place] [id number] Gabbi Dimas [id number] Gabbi Dimas 09/12/2023 1 [place] [id number] Gabbi Dimas [id number] Gabbi Dimas Notes Date Note Type Note Provider Name and Address Organization Details Recorded Time 02/02/2023 text/html 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 She has established care with MELISA Starkey. She is very pleased with the switch to Adderall and this has helped cravings. Missed [facility] this week due to attending her son's X[employer] meet. However, attends these regularly. Court date r/t custody planned for March. Planning on calling supervisor ski production tomorrow; she has not been able to connect with to find out what documentation she needs. Constipation management with Miralax. 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 Today's visit done via telemedicine. Patient was struggling with her internet connection and so today's visit done via phone. I reached Gabbi ball she was at work. She will working Tuesday - Tuesday at [employer] this holiday. She was considering applying for [...] is having some side effects of her pscyh medications (palpitations); working with Joe Juarez on that, [facility] to adjust this. Has stopped Elavil and started Clonidine. Things continue to go well on the higher dose of Suboxone (12mg/3mg in morning, 8mg/2mg in evening): helping with cravings and anxiety. She would like to remain on this dose. No cravings, no near misses or use. Constipation management with Miralax. 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 Has stopped Elavil and plan is also to stop Clonidine. Things continue to go well on the higher dose of Suboxone (12mg/3mg in morning, 8mg/2mg in evening): helping with cravings and anxiety. She would like to remain on this dose. Constipation management with Miralax. Staci Andrade NP [address] [place], [address], [facility] [employer] 05/25/2023 16:57:59 07/20/2023 text/html Gabbi Dimas is a 37 year old partnered female [employer] event services manager who presents to our [facility] [...] Constipation management with Miralax. 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 Today's visit done virtually. Had a concussion at work. Nausea is improving; MOLINA are persisting along with cognitive changes. General trend of symptoms. Out of work and no waiting on disability paperwork. Oldest son, Evan, is graduating from . He will be working [employer] and then attending [employer]. 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 [facility] Staci Andrade NP [address] [place], [address], [facility] [employer] 09/14/2023 16:08:25 OBGyn Episode No OBEpisode recorded.
--- OUTSIDE RECORDS SUMMARY | 2024-11-28 13:07 | XMS_ITS | Clinical Summary ---
Author Organization [employer] [facility] Address [address] [place] [address] Care Team Providers Care Regulatory And Compliance Technician Name Role Phone Staci Villegas MD Primary Care Provider [phone] Allergies Active Allergy Reactions Criticality Noted Date [...] disorder, r ecurrent, moderate 02/08/2018 10/26/2023 Immunizations Immunization Administration Dates Next Due DTP 04/25/1987 Hepatitis [...] is your housing situation today? 1 08/03/2023 Utilities Answer Date Recorded Do you have trouble paying f or utilities (for example, heat, electricity, water, phone)? 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 Gender Identity Not on file Sexual Orientation [...] - PCV) 03/09/2022 03/09/2021 COVID-19 vaccine series ( season) 2024 04/15/2021, 03/18/2021 BMI (ht and wt on same day) for age 18+ 10/09/2024 10/10/2023, 02/08/2018 Influenza Vaccine (#1) 2025 5, 02/05/2015, 02/26/2014, Additional history exists Tetanus booster 03/11/2025 03/11/2015, 06/10, 06/23/2005, Additional history exists HIV for age 15-65 Completed 01/14/2021 Hepatitis C screening for ag e 18-79 Completed 01/14/2021 Hepatitis B series for 19+ Completed 03/09, 12/16/2020, 12/08/1999, Additional history exists Procedures Procedure Name Priority Date/Time Associated Diagnosis Comments ANTI HIV 1/2 Routine 01/14/2021 4:24 PM CDT Opioid dependence, uncomplicated (HC) ANTI HCV Routine 01/14/2021 4:24 PM CDT Opioid dependence, uncomplicated (HC) from Last 3 Months or Most Recently Relevant to Health Maintenance Results * ANTI HCV (01/14/2021 4:24 PM CDT) HEPATITIS C ANTIBODY Non-React grecia Non-React grecia 01/15/2021 4:23 PM CDT [facility] Comment:Antibodies to HCV no t detected; does not exclude the possibility of exposure to HCV. Blood BLOOD SPECIMEN / Unknown 01/14/2021 4:24 PM CDT 01/15/2021 9:37 AM CDT us Staci Andrade RN, JUSTICE COURT JUDGE SEND OUTS Final Result [facility] [address] [place] [address], * ANTI HIV 1/2 (01/14/2021 4:24 PM CDT) HIV-1/HIV-2 ANTIBODY Non-Reacti ve Non-Reacti ve 01/15/2021 5:00 PM CDT [facility] Comment:HIV-1 p24 and HIV-1/ HIV-2 Ab not detected. Blood BLOOD SPECIMEN / Unknown 01/14/2021 4:24 PM CDT 01/15/2021 9:37 AM CDT Staci Andrade RN, JUSTICE COURT JUDGE SEND OUTS Final Result [facility] [address] [place] [address], from Last 3 Months or Most Recently Relevant to Health Maintenance Insurance MEDICARE PART A HB ONLY [facility] INDIVIDUAL AND FAMILY PLANS HEALTH SYSTEM [employer] VEHICLE INS [employer] Care Teams Regulatory And Compliance Technician Relationship Specialty Start Date End Date Staci Villegas MD [address] [place] [id number] PCP - General 02/08/20
[2024-11-28 13:11] VITALS: BP 120/80; PULSE 92; RESP 18; TEMP 36.4; O2SAT 100
--- NOTE | 2024-11-28 15:14 | ED.NURSE ---
SAUL Rolon arrived at 1445
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
[2024-11-28] MEDS: cefTRIAXone 500 MG VIAL IM (16:38)
[2024-11-28] MEDS: RALTEGRAVIR POTASSIUM 400 MG TABLET PO (16:39)
[2024-11-28] MEDS: LIDOCAINE 1% 5 ml (pf) 5 ML VIAL 1 ML IM (16:39)
[2024-11-28] MEDS: EMTRICITABINE/TENOFOVIR 200-300MG TABLET 1 TAB PO (16:39)
[2024-11-28] MEDS: DOXYCYCLINE HYCLATE 100 MG PO (16:39)
[2024-11-28] MEDS: ONDANSETRON ODT 4 MG TAB PO (16:39)
== END 2024-11-28 16:51 | disposition home or self-care (01) ==
LOC: ED 16:45
PROVIDERS: Emergency Provider Family Medicine
DX: T76.21XA Adult sexual abuse, suspected, initial encounter (principal)
CPT/HCPCS: 96372; 99281; A9270; J0696

== ENCOUNTER 2025-02-09 05:16 | Emergency (ER) | payer BC, SELFPAY ==
--- OUTSIDE RECORDS SUMMARY | 2025-02-09 05:18 | XMS_ITS | Clinical Summary ---
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 Gender Identity Not on file Sexual Orientation [...] Health Maintenance Due Date Last Done Comments HPV series for age 9-45 (1 - 3-dose SCDM series) 12/09/2010 Depression screening for age 12+ 02/08/2019 02/09/20 18 Pneumococcal series for age 6-49 (2 of 2 - PCV) 03/09/2022 03/09/2021 BMI (ht and wt on same day) for age 18+ 10/09/2024 10/10/2023, 02/08/2018 COVID-19 vaccine series ( season) 2025 04/15/2021, 03/18/2021 Influenza Vaccine (#1) 2025 5, 02/05/2015, 02/26/2014, Additional history exists Tetanus booster 03/11/2025 03/11/2015, 06/10, 06/23/2005, Additional history exists RSV vaccine for adults or (1 - 1-dose 75+ series) 12/09/2058 HIV for age 15-65 Completed 01/14/2021 Hepatitis [...] * ANTI HCV (01/14/2021 4:24 PM CDT) [facility] HEPATITIS C ANTIBODY Non-React grecia Non-React grecia 01/15/2021 4:23 PM CDT [facility] Comment:Antibodies to HCV no t detected; does not exclude the possibility of exposure to HCV. Blood BLOOD SPECIMEN / Unknown 01/14/2021 4:24 PM CDT 01/15/2021 9:37 AM CDT us Staci Andrade RN, GEOMETRICIAN SEND OUTS Final Result [facility] [address] [place] [address], [place] * ANTI HIV 1/2 (01/14/2021 4:24 PM CDT) [facility] HIV-1/HIV-2 ANTIBODY Non-Reacti ve Non-Reacti ve 01/15/2021 5:00 PM CDT [facility] Comment:HIV-1 p24 and HIV-1/ HIV-2 Ab not detected. Blood BLOOD SPECIMEN / Unknown 01/14/2021 4:24 PM CDT 01/15/2021 9:37 AM CDT us Staci Andrade RN, GEOMETRICIAN SEND OUTS Final Result [facility] [address] [place] [address], [place] from Last 3 Months or Most Recently Relevant to Health Maintenance Insurance MEDICARE PART A HB ONLY [facility] INDIVIDUAL AND FAMILY PLANS [facility] [employer] VE[employer] Care Teams Air Turning Machine Feeder Relationship Specialty Start Date End Date Staci Villegas MD [address] [place] [address] [address] PCP - General 02/08/20
[2025-02-09 05:21] VITALS: BP 124/84; PULSE 100; RESP 18; TEMP 36.7; O2SAT 98; BMI 19.9
--- NOTE | 2025-02-09 05:31 | ED.GENADULT ---
HPI - General Adult General Date Seen: 02/09/25 Chief complaint: Cough Stated complaint: congestion, wheezing - negative covid Time Seen by Provider: 02/09/25 05:31 Source: patient and RN notes reviewed Mode of arrival: ambulatory Limitations: no limitations History of Present Illness HPI narrative: Gabbi is a very pleasant 39-year-old female previously healthy with up-to-date immunizations, tobacco use, who comes to the emergency room with can continued and increasing cough with production and right-sided rib pain. Gabbi notes that this started off as a runny nose and she thought she may be getting COVID although she tested negative. She did not have a fever at that time. She was seen on 02/01 in urgent care at which time she was diagnosed with a virus and was told to use Afrin in her nose. Unfortunately she has had continued cough. She notes that sometimes she coughs so hard she is incontinent of urine. She denies a ?whoop? type of quality and again her immunizations are up-to-date. She has no known exposure to pertussis or whooping cough. She did test negative for COVID on 02/01. Her runny nose has resolved. She still has a mild sore throat. Related Data Home Medications ?Medication ?Instructions ?Recorded ?Confirmed buprenorphine 12 mg-naloxone 3 mg 1 film sublingual DAILY 02/01/25 02/09/25 sublingual film (Suboxone) dextroamphetamine-amphetamine ER 1 cap PO DAILY 02/01/25 02/09/25 10 mg 24hr capsule,extend release dolutegravir 50 mg tablet (Tivicay) 50 mg PO DAILY 02/01/25 02/09/25 emtricitabine 200 mg-tenofovir 1 tab PO DAILY 02/01/25 02/09/25 disoproxil fumarate 300 mg tablet lamotrigine 100 mg tablet 100 mg PO DAILY 02/01/25 02/09/25 Previous Rx's ?Medication ?Instructions ?Recorded albuterol sulfate 90 mcg/actuation 2 puff inhalation Q4-6H PRN 02/01/25 aerosol inhaler shortness of breath or wheezing #8.5 grams Allergies Allergy/AdvReac Type Severity Reaction Status Date / Time doxepin Allergy Verified 02/09/25 05:24 Review of Systems Status of ROS: Reports: 10 or more systems reviewed and unremarkable except as noted in History and below Const: Denies: fever or chills Eyes: Denies: change in vision ENMT: Reports: throat pain (Mild); Denies: neck pain, throat swelling, difficulty swallowing, hoarseness or nasal congestion Cardio: Denies: chest pain or shortness of breath with exertion Resp: Reports: cough and pain on inspiration (And with cough); Denies: shortness of breath, wheezing or coughing up blood GI: Denies: abdominal pain, nausea, vomiting or difficulty swallowing : Reports: other (Denies ); Denies: painful urination Musculo: Denies: neck pain Integ/Breast: Denies: rash Neuro: Denies: headache Allergy/Immuno: Denies: throat swelling or wheezing PFSH PFSH Social History Smoking Status: Current every day smoker What tobacco products do you use: cigarettes Do you use any of these nicotine containing products: None Second hand tobacco smoke exposure: No How often do you have a drink containing alcohol: 2-4 times a month AUDIT-C Alcohol total score: 2 Non-prescribed substance use: denies use Exam Narrative: Exam Narrative: Gabbi is alert and oriented. She is nontoxic in appearance. Good color. External ears eyes nose clear. Oral cavity with moist mucous membranes. Posterior oropharynx with some slight erythema. Neck is supple without lymphadenopathy. Range of motion is full. Heart with a regular rate and rhythm. Lungs show decreased breath sounds in the right lower lung. I do not hear any crackles or wheezing at this time. No lower extremity edema, no calf tenderness. Moving all extremities. Abdomen is soft and nontender. No significant palpable tenderness over inferior rib cage. No crepitus noted. Const: Vital Signs, click to edit/add: Vital Signs - 24 hr 02/09/25 05:21 Temperature 98.0 F Pulse Rate [Right Pulse Oximeter] 100 Respiratory Rate 18 Blood Pressure [Ri ght Upper Arm] 124/84 Pulse Oximetry 98 Oxygen Delivery Me thod Room Air Documenting provider has reviewed patient's vital signs: yes Course Course ED Course: Differential diagnosis includes but is not limited to bronchitis, pneumonia, pertusses, URI, rib injury. At this time will get two view x-ray. Vital Signs Vital signs: Initial Vital Signs Temperature 98.0 F 02/09/25 05:21 Temperature Source Temporal Artery Scan 02/09/25 05:21 Pulse Rate 100 02/09/25 05:21 Respiratory Rate 18 02/09/25 05:21 Respiratory Effort Normal, Spontaneous, Non-Labored 02/09/25 05:21 Respiratory Depth Normal 02/09/25 05:21 Respiratory Pattern Normal 02/09/25 05:21 Blood Pressure 124/84 02/09/25 05:21 Blood Pressure Mean 97 02/09/25 05:21 Blood Pressure Position Sitting 02/09/25 05:21 Pulse Oximetry 98 02/09/25 05:21 Oxygen Delivery Method Room Air 02/09/25 05:21 Vital Signs Temperature 98.0 F 02/09/25 05:21 Pulse Rate 100 02/09/25 05:21 Respiratory Rate 18 02/09/25 05:21 Blood Pressure 124/84 02/09/25 05:21 Pulse Oximetry 98 02/09/25 05:21 Oxygen Delivery Method Room Air 02/09/25 05:21 Temperature 98.0 F 02/09/25 05:21 Pulse Rate 100 02/09/25 05:21 Respiratory Rate 18 02/09/25 05:21 Blood Pressure 124/84 02/09/25 05:21 Pulse Oximetry 98 02/09/25 05:21 Oxygen Delivery Method Room Air 02/09/25 05:21 Medical Decision Making MDM Narrative Medical decision making narrative: 1. Bronchitis-patient with ongoing symptoms of a cough after initial viral infection for 3 weeks. Patient is fully vaccinated. At this time will treat her for bronchitis with Zithromax 500 mg today followed by 250 mg daily for 4 days. This was put in our [employer] machine. Recommend rest over the next 48 hours. A note is given for work in regards to this. 2. Rib pain-no evidence of fracture on x-ray although I did not do dedicated films of the ribs. Recommend ibuprofen or Tylenol as needed. Recommend against using Luis wrap to wrap the ribs as she has been doing. 3. Disposition-home at this time. Seek medical attention for worsening symptoms. Medical Records Medical records reviewed: Yes I reviewed the patient's medical records Imaging Data Chest x-ray: Attestation: I have reviewed the pertinent imaging results. My impression: By my read no evidence of pneumonia. I do not note any evidence of rib fracture. Radiologist's impression: Cardiovascular and mediastinum: Heart size is normal. Unremarkable mediastinum. Lungs and pleural spaces: Lungs are clear. No sign of infiltrate or mass. No sign of pleural effusion. No pneumothorax. Bones and soft tissues: No significant findings. IMPRESSION: Negative chest. Discharge Plan Discharge Clinical Impression: Bronchitis Patient Disposition: Home, Self-Care Condition: Unchanged Additional Instructions: Start Zithromax today. I put this prescription in our vending machine in the lobby so that you do not have to wait for the pharmacy. Note for no work today or tomorrow as you recover. Return or seek medical attention for worsening symptoms. If possible, decrease or abstain from smoking. Prescriptions: No Action dextroamphetamine-amphetamine 10 mg capsule,extended release 24hr 1 cap PO DAILY lamotrigine 100 mg tablet 100 mg PO DAILY emtricitabine-tenofovir (TDF) 200-300 mg tablet 1 tab PO DAILY buprenorphine-naloxone [Suboxone] 12-3 mg film 1 film sublingual DAILY Tivicay 50 mg tablet 50 mg PO DAILY albuterol sulfate 90 mcg/actuation HFA aerosol inhaler 2 puff inhalation Q4-6H PRN (Reason: shortness of breath or wheezing) Qty: 8.5 0RF Follow Up/Referrals: Provider,Not a Local [Primary Care Provider, Family Practice] Stand Alone Forms: [employer] Info Instructions
--- NOTE | 2025-02-09 05:38 | CRLHL7_ITS ---
For Patients: As a result of the Century Cures Act, medical imaging exams and procedure reports are released immediately into your electronic medical record. You may view this report before your referring provider. If you have questions, please contact your health care provider. INDICATION: Productive cough. TECHNIQUE: Chest 2 views. COMPARISON: 02/11/2018. FINDINGS: Cardiovascular and mediastinum: Heart size is normal. Unremarkable mediastinum. Lungs and pleural spaces: Lungs are clear. No sign of infiltrate or mass. No sign of pleural effusion. No pneumothorax. Bones and soft tissues: No significant findings. IMPRESSION: Negative chest. Dictated by Redd France MD @ 02/09/2025 6:22:39 AM (Electronically Signed)
--- OUTSIDE RECORDS SUMMARY | 2025-02-09 05:47 | XMS_ITS | Data Portability ---
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 [address] 10/06/2022 15:59:23 10/06/2022 16:24:22 Opioid dependence 37406172 F11.20 Relatively stable on current dose of [...] ent provided.3 0 day supply sent to [facility]. RTC 1 month in person, earlier with any questions. PLASTERER SPOT reviewed with no concerns. Last UDS 07/01 with no concerns; will repeat at next visit. No concern for r/t hysterecto my. [id number] Staci Andrade NP [facility] [address] [place] [address] 11/03/2022 15:27:26 11/03/2022 15:47:21 Therapeutic opioid induced constipation [id number] 63726 K59.03 Continue Miralax, hydration. Continue to follow. Opioid dependence 438941 00 F11.20 WIth reduction in cravings this [...] call earlier with any questions or concerns. PLASTERER SPOT reviewed with no concerns. Last UDS 07/01 with no concerns; will repeat at next visit. No concern for r/t hysterecto my. [id number] Staci Andrade NP [facility] [address] [place] [address] 01/05/2023 14:31:13 01/05/2023 16:02:35 Genital herpes simplex 56169635 A60.9 Refills for daily suppressiv e therapy requested and appropriat e. Should come from PCP but patient has struggled to connect with a PCP. Opioid dep endence, on agonist therapy [id number] 105 F11.20 Feeling increased cravings related to [...] provided. 30 day supply sent to pharmacy; PLASTERER SPOT reviewed with no concerns. Will also collect full drugs of abuse panel today. Patient is looking for documentat ion of her ongoing abstinence . I will also be happy to write a summary of care letter attesting to Gabbi's good standing in our clinic. No concern for r/t hysterecto my. [id number] Staci Andrade, JASM[facility] [place] [address] 02/02/2023 15:55:19 02/02/2023 16:58:00 Opioid dependence, on agonist therapy [id number] 105 F11.20 Increased cravings related to situationa l stressors (r/t custody of children) have responded well to increased dose of Suboxone: now 12mg/3am qam, 8mg/2mg qpm. No sedation or other side effects noted other than longstandi ng constipati on. 1 month + refill sent to [facility]. Patient will RTC 8 weeks virtually instead of 4 weeks r/t correction stability as well as co-managem ent with psychiatry . To call earlier with concerns. Patient wishes to continue [facility] treatment here; will continue with Oliver Juarez CNP for mood and ADHD management . Stable employment less stressful these past months. Support and encouragem ent provided. PLASTERER SPOT reviewed with no concerns. No concern for r/t hysterecto my. At least 15 minutes spend with patient, reviewing chart and completing documentat ion. 11739 Staci Andrade NP [facility] [address] [place] [address] 03/30/2023 16:27:23 03/30/2023 17:36:11 Opioid dependence, on agonist therapy [id number] 105 F11.20 Stable housing, stable employment and stable relationsh ip. Cravings and withdrawal symptoms well managed on Suboxone 12mg/3am qam, 8mg/2mg qpm. No sedation or other side effects noted other than longstandi ng constipati on. 1 month + refill sent to [facility]. 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 To call earlier with concerns. Will continue with Oliver Juarez CNP for mood and ADHD management . Support and encouragem ent provided. PLASTERER SPOT reviewed with no concerns. No concern for r/t hysterecto my. At least 15 minutes spend with patient, reviewing chart and completing documentat ion. 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 To call earlier with concerns. Will continue with Oliver Juarez CNP for mood and ADHD management . Support and encouragem ent provided. PLASTERER SPOT reviewed with no concerns. No concern for r/t hysterecto my. At least 15 minutes spend with patient, reviewing chart and completing documentat ion. Therapeuti c opioid induced constipation [id number] 84234 K59.03 Continue Miralax, hydration. Continue to follow. [id number] Staci Andrade NP [facility] [address] [place] [address] 07/20/2023 16:18:24 07/20/2023 17:19:34 Opioid dependence, on agonist therapy [id number] 105 F11.20 Stable housing, stable employment and stable relationsh . Cravings and withdrawal symptoms continue to be well managed on Suboxone 12mg/3am qam, 8mg/2mg qpm. No sedation or other side effects noted other than longstandi ng constipati on. 1 month + refill sent to [facility]. Patient will RTC 8 weeks in person r/t correction stability as well as co-managem ent with [...] case has been resolved; custody still pending. PLASTERER SPOT reviewed with no concerns. No concern for r/t hysterecto my. At least 15 minutes spend with patient, reviewing chart and completing documentat ion. Therapeuti c opioid induced constipation [id number] 85461 K59.03 Continue Miralax, hydration. Continue to follow. 12968 Staci Andrade NP [facility] [address] [place] [address] 09/14/2023 15:47:06 09/14/2023 16:34:34 Opioid dependence 84486837 F11.20 Consolidat ing care with Joe Juarez. Gabbi is always welcome back here at [facility] if things change. She was very appreciati ve of our care here.F/U PRN. Health Concerns Section Related Observation LastModified by Organization Detai ls LastModified Time None Recorded Concern Status LastModified by Organization Details LastModified Time None Recorded Advance Directives Directive None Recorded Payers Insurance Date Sequence Insurance Name Policy Number Policy Tyson Covered Member ID Tyson Member ID Guarantor Name 07/21/2023 1 [id number] Gabbi Dimas [id number] Gabbi Dimas 07/21/2023 1 [place] [id number] Gabbi Dimas [id number] Gabbi Dimas 09/12/2023 1 [place] [id number] Gabbi Dimas [id number] Gabbi Dimas Notes Date Note Type Note Provider Name and Address Organization Details Recorded Time 02/02/2023 text/html Gabbi Dimas is a 37 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 Planning on calling securities research analyst tomorrow; she has not been able to connect with to find out what documentation she needs. Constipation management with Miralax. 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 Today's visit done via telemedicine. Patient was struggling with her internet connection and so today's visit done via phone. I reached Gabbi buenobenedict she was at work. She will working Tuesday - Tuesday at [employer] this holiday. She was considering applying for [...] (palpitations); working with Joe Juarez on that, [facility] to adjust this. Has stopped Elavil and started Clonidine. Things continue to go well on the higher dose of Suboxone (12mg/3mg in morning, 8mg/2mg in evening): helping with cravings and anxiety. She would like to remain on this dose. No cravings, no near misses or use. Constipation management with Miralax. 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 Today's visit done virtually. Had a concussion at work. Nausea is improving; MOLINA are persisting along with cognitive changes. General trend of symptoms. Out of work and no waiting on disability paperwork. Oldest son, Evan, is graduating from . He will be working [employer] and then attending [employer]. 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 She will consolidate her care with [facility] Joe Juarez. Staci Andrade NP [address] [place], [address], [facility] [employer] 09/14/2023 16:08:25 OBGyn Episode No OBEpisode recorded.
[2025-02-09 06:32] VITALS: BP 121/80; PULSE 95; RESP 18; TEMP 36.7; O2SAT 98
[2025-02-09 06:33] VITALS: BP 121/80; PULSE 95; RESP 18; TEMP 36.7
== END 2025-02-09 06:35 | disposition home or self-care (01) ==
PROVIDERS: Emergency Provider Family Medicine
DX: J40 Bronchitis, not specified as acute or chronic (principal); F17.210 Nicotine dependence, cigarettes, uncomplicated
CPT/HCPCS: 71046; 99283; 99284